=== PATIENT | male | born 1980 | race Caucasian/White ===

== ENCOUNTER 2016-10-28 14:45 | Inpatient (IN) | payer OTHER ==
[2016-10-28] VITALS (24 sets, daily range): BP systolic 79–134; BP diastolic 51–63; PULSE 114–130; RESP 8–31; TEMP 99.3
[~2016-10-28] VITALS: Ht 180.3 cm; Wt 181.0 kg
[~2016-10-28 14:45] MED LIST: BACTDS PO; CEPH-443 PO; HYDR-906 PO; NAPR-260 PO
[2016-10-28] MEDS ORDERED: CEPHALEXIN 500 MG CAP PO ONE (15:30)
[2016-10-28] MEDS ORDERED: LIDOCAINE 2% (MDV) 20 ML INJ INJ ONE (15:30)
[2016-10-28] MEDS ORDERED: IBUPROFEN 800 MG TAB PO ONE (15:30)
[2016-10-28] MEDS ORDERED: ACETAMINOPHEN 325 MG TAB PO ONE (15:30)
[2016-10-28] MEDS ORDERED: TRIMETHOPRIM/SULFAMETHOX (DS) TAB PO ONE (15:30)
[2016-10-28] MEDS ORDERED: SOD CHLORIDE 0.9% 1,000 ML IV STA (15:49)
[2016-10-28] MEDS ORDERED: morphine 4 MG/ML VIAL IV STA (15:49)
[2016-10-28] MEDS ORDERED: SOD CHLORIDE 0.9% 1,000 ML IV ONE ×3 (16:30→23:30)
[2016-10-28 16:33] LABS: ABNORMAL IP MESSAGE 1; BASOPHIL # 0.1 10^3/ul (0.0-0.1); BASOPHILS % 0.2 % (0.0-2.0); HEMOGLOBIN 15.1 g/dl (14.0-18.0); LYMPHOCYTES % 4.8 % (15.0-51.0); MEAN CORPUSCULAR HEMOGLOBIN 28.5 pg (29.0-33.0); MEAN CORPUSCULAR HGB CONC 34.3 g/dl (32.0-37.0); MEAN PLATELET VOLUME 11.5 fl (7.4-10.4); MONOCYTE # 2.2 10^3/ul (0.3-0.9); MONOCYTES % 10.4 % (0.0-11.0); NEUTROPHIL # 17.2 10^3/ul (1.6-7.5); NEUTROPHILS % 83.6 % (39.0-77.0); PLATELET COUNT 216 10^3/UL (140-415); POSITIVE DIFF @See below; RED CELL DISTRIBUTION WIDTH 13.2 % (11.5-14.5); WHITE BLOOD COUNT 20.6 10^3/ul (4.8-10.8)
[2016-10-28 16:52] LABS: ALBUMIN 3.5 g/dl (3.3-4.9); ALBUMIN/GLOBULIN RATIO 0.87; BILIRUBIN,INDIRECT 1.2 mg/dl (0-1.1); BILIRUBIN,TOTAL 1.2 mg/dl (0.2-1.3); CALCIUM 8.7 mg/dl (8.4-10.2); CREATININE 0.88 mg/dl (0.61-1.24); POTASSIUM 3.9 mmol/L (3.5-5.1); TOTAL PROTEIN 7.5 g/dl (6.1-8.1)
[2016-10-28] MEDS ORDERED: SOD CHLORIDE 0.9% 100 ML ONE (17:11)
[2016-10-28] MEDS ORDERED: IOHEXOL 300MG/ML 150 ML BTL ONE (17:11)
--- NOTE | 2016-10-28 18:28 | RADRPT ---
PROCEDURE: CT abdomen and pelvis with contrast. CLINICAL INDICATION: Abdominal pain. Right thigh pain. Status post drainage. TECHNIQUE: CT of the abdomen/pelvis was performed utilizing axial images with reconstructions in s agittal and coronal planes following the intravenous administration of 125 cc of Omnipaque-300 contr ast. The administered radiation dose is CTDI 23.81 mGy, DLP 1603.91 mGy-cm. COMPARISON: There are no similar studies submitted for comparison. Ultrasound of the pelvis from the same day. FINDINGS: Lung bases: The lung bases are clear.The heart is normal size without pericardial effusion. CT ABDOMEN: Gastrointestinal tract: There is no bowel obstruction.The appendix is normal size without inflammato ry changes. There are mild to moderate colonic diverticula without acute diverticulitis. No abnorma l colonic wall thickening is identified.There is no pneumoperitoneum. Liver: The liver is normal in size without focal lesion.There is no intrahepatic ductal dilatation. Gallbladder: There is a small gallstone. Pancreas: The pancreas is grossly unremarkable. Spleen: The spleen is normal in size without focal lesion. Kidneys: The kidneys are normal in size and contour.No renal calculi are identified.There is no evid ence of hydronephrosis. Adrenal glands: The bilateral adrenal glands are unremarkable. Retroperitoneum: There is no retroperitoneal adenopathy.The aorta is normal in caliber. There is a s mall fat containing inguinal hernia. CT PELVIS: Pelvic organs: The prostate is normal in size. Bladder: The bladder is unremarkable. There is no pelvic free fluid.No pelvic adenopathy is identified. There is subcutaneous emphysema within the right proximal medial thigh (image 229 series 3) there is mild surrounding subcutaneous stranding. There are mildly large right inguinal lymph nodes which ar e likely reactive. Osseous structures: No destructive lytic or blastic osseous lesion is identified. There is congenita l spinal canal stenosis. IMPRESSION: 1. Subcutaneous emphysema within the right proximal medial thigh with surrounding inflammatory barnett es. There are also inflammatory changes within the right epididymis. There are mildly large right inguinal lymph nodes which are likely reactive. 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 2. Mild to moderate colonic diverticulosis without acute diverticulitis. 3. Cholelithiasis. 4. Congenital spinal canal stenosis. Further findings as detailed above. These findings were discussed with physician's employee relations assistant Jacki Freeman at 06:20 p.m. on October 28, 2016. RPTAT: PP .Everton Gross MD, Date Time Electronically viewed and signed by .Everton Gross MD, MD on 10/28/2016 18:28 .F/
[2016-10-28 19:21] LABS: INR 1.49; PROTIME 18.1 Sec (12.2-14.2); PT RATIO 1.4
[2016-10-28 19:22] LABS: PARTIAL THROMBOPLASTIN TIME 42.5 Sec (25.0-35.0)
[2016-10-28] MEDS ORDERED: VANCOMYCIN 2 GM in SOD CHLORIDE 0.9% 500 ML IVPB ONE (19:30)
[2016-10-28] MEDS ORDERED: CEFEPIME 1GM/50 ML (PMX) 50 ML IVPB ONE (19:30)
[2016-10-28] MEDS ORDERED: metroNIDAZOLE 500 MG/NS (PMX) 100 ML IVPB ONE (19:30)
--- NOTE | 2016-10-28 19:40 | ERA ---
ER Documentation Chief Complaint Date/Time DATE: 10/28/16 TIME: 19:32 Chief Complaint right thigh and perineal pain x 4 days (JACKI PALMER PA-C) HPI 36-year-old male patient with no significant past medical history presents to the ED complaining of right inner thigh and perineal pain that started 4 days ago. Reports that he also felt like he had tactile fevers as well as chills. States that 4 days ago, he noticed that a little opening of his skin occurred in his inner thigh and he started to notice some purulent discharge. States that he started to notice some swelling. States that he is sexually active. Reports that he has 1 sexual partner. Denies any penile discharge. Denies any dysuria, urgency, frequency, abdominal pain, nausea, vomiting, diarrhea. (JACKI PALMER PA-C) This patient was seen with the PA. Please see their note for further detail. Very briefly, this is a 36-year-old male with a history of obesity, reported borderline diabetes and previous perineal abscesses who is presenting with fever , tachycardia with worsening swelling induration fluctuance and purulence in the perineal region over the last 4-7 days. (LUIGI DALTON MD) ROS All systems reviewed and are negative except as per history of present illness. (JACKI PALMER PA-C) 14 point review of systems was completed and negative except for what is in my HPI in the HPI of the PA. (LUIGI DALTON MD) Medications Home Meds Discontinued Scripts Naproxen* (Naprosyn*) 500 Mg Tablet, 500 MG PO BID Y for PAIN AND/OR INFLAMMATION, #30 TAB Prov:MOUSTAPHA GRAHAM PA-C 02/16/16 Hydrocodone/Acetaminophen ([place] 5-325 Tablet) 1 Each Tablet, 1 TAB PO Q6H Y for PAIN, #7 TAB Prov:MOUSTAPHA GRAHAM PA-C 02/16/16 Cephalexin* (Keflex*) 500 Mg Capsule, 500 MG PO QID for 10 Days, CAP Prov:MOUSTAPHA GRAHAM PA-C 02/16/16 Sulfamethoxazole-Trimethoprim* (Bactrim* DS) 800-160 Mg Tab, 1 TAB PO BID for 10 Days, TAB Prov:MOUSTAPHA GRAHAM PA-C 02/16/16 Allergies Allergies: Coded Allergies: No Known Drug Allergies (Verified Allergy, Unknown, 10/28/16) PMhx/Soc History of Surgery: No Anesthesia Reaction: No Hx Neurological Disorder: No Hx Respiratory Disorders: No Hx Cardiac Disorders: No Hx Psychiatric Problems: No Hx Miscellaneous Medical Probl: No Hx Alcohol Use: Yes Hx Substance Use: Yes Hx Tobacco Use: Yes Smoking Status: Current every day smoker (JACKI PALMER PA-C) Physical Exam Vitals Vital Signs Date Time Temp Pulse Resp B/P Pulse Ox O2 Delivery O2 Flow Rate FiO2 10/28/16 18:48 99.3 120 18 118/64 97 Room Air 10/28/16 14:47 101.4 153 20 127/75 97 (LUIGI DALTON MD) Physical Exam Const: [id number]-[id number]-wbhcsnube, well-nourished. In no acute distress. Head: Atraumatic, normocephalic Eyes: Normal Conjunctiva without injection. No purulent discharge. ENT: Normal external ear, nose. Moist oropharynx without tonsillar exudates. Non -erythematous pharynx. Uvula midline. No drooling. No trismus. Neck: No cervical midline tenderness. Full range of motion. No meningismus. No cervical lymphadenopathy. No JVD. Resp: Clear to auscultation bilaterally. No wheezing, rhonchi, rales, or crackles. No accessory muscle use. No retractions. Cardio: Regular rate and rhythm. No murmurs, rubs or gallops. Abd: Soft, nontender, non distended. Normal bowel sounds. No palpable masses. No rebound tenderness. No guarding. Negative McBurney's point. Negative psoas sign. Negative obturator sign. : Uncircumcised penis. No penile discharge. Significant edema and crepitus noted in the right perineum region. Slight tenderness palpation of the right scrotum. No phimosis. No paraphimosis. Skin: No petechiae, purpura. Fluctuance noted in the right inner thigh where there is a 2 cm spontaneous opening and drainage noted. 1 cm circular lesion noted on the right scrotum with spontaneous purulent drainage noted. Back: No midline tenderness. No CVA tenderness. Ext: No cyanosis, or edema. Neur: Awake and alert. Normal gait. Normal coordination. Psych: Normal Mood and Affect (JACKI PALMER PA-C) Physical Exam The patient appeared well nourished and normally developed. Vital signs as documented. Patient is febrile and tachycardic. head exam is unremarkable. No scleral icterus or corneal arcus noted. Neck is without jugular venous distension, thyromegaly, or carotid bruits. Carotid upstrokes are brisk bilaterally. Lungs are clear to auscultation and percussion. Cardiac exam reveals the PMI to be normally sized and situated. Rhythm is regular. First and second heart sounds normal. No murmurs, rubs or gallops. Abdominal exam reveals normal bowel sounds, no masses, no organomegaly and no aortic enlargement. Extremities are nonedematous and both femoral and pedal pulses are normal. Multiple areas of fluctuance in the perineal region with open purulent wounds. (LUIGI DALTON MD) Result Diagram: 10/29/16 1253 10/29/16 1253 Results 24 hrs Laboratory Tests Test 10/28/16 16:00 10/28/16 18:35 White Blood Count 20.610^3/ul Red Blood Count 5.3010^6/ul Hemoglobin 15.1g/dl Hematocrit 44.0% Mean Corpuscular Volume 83.0fl Mean Corpuscular Hemoglobin 28.5pg Mean Corpuscular Hemoglobin Concent 34.3g/dl Red Cell Distribution Width 13.2% Platelet Count 47605^3/UL Mean Platelet Volume 11.5fl Neutrophils % 83.6% Lymphocytes % 4.8% Monocytes % 10.4% Eosinophils % 0.0% Basophils % 0.2% Nucleated Red Blood Cells % 0.0/100WBC Neutrophils # 17.210^3/ul Lymphocytes # 1.010^3/ul Monocytes # 2.210^3/ul Eosinophils # 0.010^3/ul Basophils # 0.110^3/ul Nucleated Red Blood Cells # 0.010^3/ul Sodium Level 136mmol/L Potassium Level 3.9mmol/L Chloride Level 93mmol/L Carbon Dioxide Level 24mmol/L Anion Gap 23 Blood Urea Nitrogen 10mg/dl Creatinine 0.88mg/dl Glucose Level 300mg/dl Calcium Level 8.7mg/dl Total Bilirubin 1.2mg/dl Direct Bilirubin 0.00mg/dl Indirect Bilirubin 1.2mg/dl Aspartate Amino Transf (AST/SGOT) 20IU/L Alanine Aminotransferase (ALT/SGPT) 33IU/L Alkaline Phosphatase 132IU/L Total Protein 7.5g/dl Albumin 3.5g/dl Globulin 4.00g/dl Albumin/Globulin Ratio 0.87 Prothrombin Time 18.1Sec Prothrombin Time Ratio 1.4 INR International Normalized Ratio 1.49 Activated Partial Thromboplast Time 42.5Sec Lactic Acid Level 1.9mmol/L Current Medications Medications (Trade) Dose Ordered Sig/Maureen Route PRN Reason Start Time Stop Time Status Last Admin Dose Admin Ibuprofen (Motrin) 800 mg ONCE ONCE PO 10/28/16 15:30 10/28/16 15:31 DC 10/28/16 15:14 Acetaminophen (Tylenol Tab) 650 mg ONCE ONCE PO 10/28/16 15:30 10/28/16 15:31 DC 10/28/16 15:14 Trimethoprim/ Sulfamethoxazole (Bactrim (Ds)) 1 tab ONCE ONCE PO 10/28/16 15:30 10/28/16 15:31 DC 10/28/16 15:14 Cephalexin (Keflex) 500 mg ONCE ONCE PO 10/28/16 15:30 10/28/16 15:31 DC 10/28/16 15:15 Lidocaine 20 ml 20 ml ONCE ONCE INJ 10/28/16 15:30 10/28/16 15:31 DC 10/28/16 15:14 Sodium Chloride (NS) 1,000 ml @ 1,000 mls/hr Q1H STAT IV 10/28/16 15:49 10/28/16 16:48 DC 10/28/16 16:11 Morphine Sulfate 4 mg 4 mg ONCE STAT IV 10/28/16 15:49 10/28/16 15:51 DC 10/28/16 16:22 Sodium Chloride (NS) 1,000 ml @ 1,000 mls/hr Q1H ONCE IV 10/28/16 16:30 10/28/16 17:29 DC 10/28/16 16:30 IV Flush 10 ml 10 ml STK-MED ONCE .ROUTE 10/28/16 17:11 10/28/16 17:12 DC 10/28/16 17:47 Sodium Chloride (NS) 100 ml @ ud STK-MED ONCE .ROUTE 10/28/16 17:11 10/28/16 17:12 DC 10/28/16 17:49 Iohexol 150 ml 150 ml STK-MED ONCE .ROUTE 10/28/16 17:11 10/28/16 17:12 DC 10/28/16 17:48 Cefepime HCl 50 ml @ 100 mls/hr ONCE ONCE IVPB 10/28/16 19:30 10/28/16 19:59 DC 10/28/16 20:02 Metronidazole 100 ml @ 100 mls/hr ONCE ONCE IVPB 10/28/16 19:30 10/28/16 20:29 DC Sodium Chloride 1,000 ml @ 1,000 mls/hr Q1H ONCE IV 10/28/16 19:30 10/28/16 20:29 DC 10/28/16 20:02 Vancomycin HCl/ Sodium Chloride (Vancocin/NS) 500 ml @ 125 mls/hr ONCE ONCE IVPB 10/28/16 19:30 10/28/16 23:29 (LUIGI DALTON MD) Procedures/MDM This is a 36-year-old male patient with no significant past medical history presents the ED complaining of right inner thigh and perineal pain that started 4 days ago. At this time patient's right inner thigh has fluctuance, therefore an attempt to incise and drain this area was performed with patient's consent. Patient gave consent to perform incision and drainage. 11 blade scalpel used to make a small incision. Abscess Incision and Drainage with irrigation by me: Location: Right inner thigh below crease of right groin Anesthesia: [5 cc Local 2% Lidocaine] Technique: [Irrigated. Disrupted loculations w/ instrumentation ] Packing: [None] Complications: [Neurovascularly intact post procedure] There is initial consideration to I&D a left thigh abscess. Patient was also given Ibuprofen, Tylenol, Bactrim and Keflex for initiation of treatment. However, it was noted that the infection appeared to track along the perineum, and the I&D was aborted. Patient is febrile at 101.4 and tachycardic at 153. Patient was further worked up with CBC, CMP, lipase, UA, CT abdomen and pelvis with contrast, scrotal ultrasound. Patient's pain and symptoms have improved after treatment with 4 mg IV morphine , 30 mg/kg normal saline. CBC: Leukocytosis of 20.6.. No e/o anemia. CMP: No e/o severe acidosis, alkalosis, renal failure, liver disease. Glucose 300 - secondary to probable undiagnosed diabetes. No e/o DKA. Lipase within normal limits. Lactic acid 1.9 Urine: No leukocyte esterase, no nitrites, no hematuria. PROCEDURE: CT abdomen and pelvis with contrast. CLINICAL INDICATION: Abdominal pain. Right thigh pain. Status post drainage. TECHNIQUE: CT of the abdomen/pelvis was performed utilizing axial images with reconstructions in sagittal and coronal planes following the intravenous administration of 125 cc of Omnipaque-300 contrast. The administered radiation dose is CTDI 23.81 mGy, DLP 1603.91 mGy-cm. COMPARISON: There are no similar studies submitted for comparison. Ultrasound of the pelvis from the same day. FINDINGS: Lung bases: The lung bases are clear.The heart is normal size without pericardial effusion. CT ABDOMEN: Gastrointestinal tract: There is no bowel obstruction.The appendix is normal size without inflammatory changes. There are mild to moderate colonic diverticula without acute diverticulitis. No abnormal colonic wall thickening is identified.There is no pneumoperitoneum. Liver: The liver is normal in size without focal lesion.There is no intrahepatic ductal dilatation. Gallbladder: There is a small gallstone. Pancreas: The pancreas is grossly unremarkable. Spleen: The spleen is normal in size without focal lesion. Kidneys: The kidneys are normal in size and contour.No renal calculi are identified.There is no evidence of hydronephrosis. Adrenal glands: The bilateral adrenal glands are unremarkable. Retroperitoneum: There is no retroperitoneal adenopathy.The aorta is normal in caliber. There is a small fat containing inguinal hernia. CT PELVIS: Pelvic organs: The prostate is normal in size. Bladder: The bladder is unremarkable. There is no pelvic free fluid.No pelvic adenopathy is identified. There is subcutaneous emphysema within the right proximal medial thigh (image 229 series 3) there is mild surrounding subcutaneous stranding. There are mildly large right inguinal lymph nodes which are likely reactive. Osseous structures: No destructive lytic or blastic osseous lesion is identified. There is congenital spinal canal stenosis. IMPRESSION: 1. Subcutaneous emphysema within the right proximal medial thigh with surrounding inflammatory changes. There are also inflammatory changes within the right epididymis. There are mildly large right inguinal lymph nodes which are likely reactive. 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 2. Mild to moderate colonic diverticulosis without acute diverticulitis. 3. Cholelithiasis. 4. Congenital spinal canal stenosis. Further findings as detailed above. These findings were discussed with physician's veterinarian assistant Jacki Palmer at 06:20 p.m. on October 28, 2016. 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 Patient's glucose is 300. Patient likely has undiagnosed diabetes. Case discussed with my supervising physician, Dr. Dalton who agreed to consult the general surgeon plant taxonomist for emergent consultation. The patient was notified and agreed to admission. Patient understood his findings. Patient will be treated here in the ED with Cefepime, Vancomycin and Flagyl. (JACKI PALMER PA-C) The patient presented febrile and tachycardic. Blood work is obtained and reviewed. He has a leukocytosis to 20. 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 There is initial consideration to I&D a left thigh abscess. However, it was noted that the infection appeared to track along the perineum, and the I&D was aborted. The patient was given 30 mL/kg of normal saline. He was given broad-spectrum antibiotics in the emergency department. This patient was seen by the PA under my direct supervision. General surgery was consulted to evaluate the patient. They took him to the OR for operative intervention. The patient will be admitted to the hospital for further evaluation and management. (LUIGI DALTON MD) Departure Diagnosis: Primary Impression: Dian gangrene Condition: Fair JACKI PALMER PA-C Oct 28, 2016 19:40 LUIGI DALTON MD Oct 28, 2016 21:57 SBP LESS THAN 90 10/28/16 21:30 10/29/16 02:00 Meperidine HCl (Demerol) 25 mg PACU ORDER PRN IV POST-OP RIGORS 10/28/16 21:30 10/29/16 02:00 Diphenhydramine HCl (Benadryl) 25 mg PACU ORDER PRN IV PRURITUS 10/28/16 21:30 10/29/16 02:00 Ondansetron HCl (Zofran Inj) 4 mg BRIDGE ORDER PRN IV NAUSEA AND/OR VOMITING 10/28/16 22:00 10/29/16 21:59 Acetaminophen (Tylenol Tab) 650 mg ER BRIDGE PRN PO MILD PAIN/FEVER 10/28/16 22:00 10/29/16 21:59 (LUIGI DALTON MD) Procedures/MDM This is a 36-year-old male patient with no significant past medical history presents the ED complaining of right inner thigh and perineal pain that started 4 days ago. At this time patient's right inner thigh has fluctuance, therefore an attempt to incise and drain this area was performed with patient's consent. Patient gave consent to perform incision and drainage. 11 blade scalpel used to make a small incision. Abscess Incision and Drainage with irrigation by me: Location: Right inner thigh below crease of right groin Anesthesia: [5 cc Local 2% Lidocaine] Technique: [Irrigated. Disrupted loculations w/ instrumentation ] Packing: [None] Complications: [Neurovascularly intact post procedure] Copious purulent discharge drained from the abscess. Patient is febrile at 101.4 and tachycardic at 153. Patient was further worked up with CBC, CMP, lipase, UA, Patient's pain and symptoms have improved after treatment with CBC: Leukocytosis of 20.6. No e/o anemia. CMP: No e/o severe acidosis, alkalosis, renal failure, diabetic ketoacidosis, liver disease Lipase within normal limits. Urine: No leukocyte esterase, no nitrites, no hematuria. PROCEDURE: CT abdomen and pelvis with contrast. CLINICAL INDICATION: Abdominal pain. Right thigh pain. Status post drainage. TECHNIQUE: CT of the abdomen/pelvis was performed utilizing axial images with reconstructions in sagittal and coronal planes following the intravenous administration of 125 cc of Omnipaque-300 contrast. The administered radiation dose is CTDI 23.81 mGy, DLP 1603.91 mGy-cm. COMPARISON: There are no similar studies submitted for comparison. Ultrasound of the pelvis from the same day. FINDINGS: Lung bases: The lung bases are clear.The heart is normal size without pericardial effusion. CT ABDOMEN: Gastrointestinal tract: There is no bowel obstruction.The appendix is normal size without inflammatory changes. There are mild to moderate colonic diverticula without acute diverticulitis. No abnormal colonic wall thickening is identified.There is no pneumoperitoneum. Liver: The liver is normal in size without focal lesion.There is no intrahepatic ductal dilatation. Gallbladder: There is a small gallstone. Pancreas: The pancreas is grossly unremarkable. Spleen: The spleen is normal in size without focal lesion. Kidneys: The kidneys are normal in size and contour.No renal calculi are identified.There is no evidence of hydronephrosis. Adrenal glands: The bilateral adrenal glands are unremarkable. Retroperitoneum: There is no retroperitoneal adenopathy.The aorta is normal in caliber. There is a small fat containing inguinal hernia. CT PELVIS: Pelvic organs: The prostate is normal in size. Bladder: The bladder is unremarkable. There is no pelvic free fluid.No pelvic adenopathy is identified. There is subcutaneous emphysema within the right proximal medial thigh (image 229 series 3) there is mild surrounding subcutaneous stranding. There are mildly large right inguinal lymph nodes which are likely reactive. Osseous structures: No destructive lytic or blastic osseous lesion is identified. There is congenital spinal canal stenosis. IMPRESSION: 1. Subcutaneous emphysema within the right proximal medial thigh with surrounding inflammatory changes. There are also inflammatory changes within the right epididymis. There are mildly large right inguinal lymph nodes which are likely reactive. 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 2. Mild to moderate colonic diverticulosis without acute diverticulitis. 3. Cholelithiasis. 4. Congenital spinal canal stenosis. Further findings as detailed above. These findings were discussed with physician's veterinarian assistant Jacki Palmer at 06:20 p.m. on October 28, 2016. Patient's clinical examination and CT findings are likely consistent with Ingrid 's gangrene. Patient's glucose is 300. Patient likely has undiagnosed diabetes. Case discussed with my supervising physician, Dr. Dalton who agreed to consult the general surgeon plant taxonomist for emergent consultation. The patient was notified and agreed to admission. Patient understood his findings. Patient will be treated here in the ED with Cefepime, Vancomycin and Flagyl. (JACKI PALMER PA-C) The patient presented febrile and tachycardic. Blood work is obtained and reviewed. He has a leukocytosis to 20. 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 There is initial consideration to I&D a left thigh abscess. However, it was noted that the infection appeared to track along the perineum, and the I&D was aborted. The patient was given 30 mL/kg of normal saline. He was given broad-spectrum antibiotics in the emergency department. This patient was seen by the PA under my direct supervision. General surgery was consulted to evaluate the patient. They took him to the OR for operative intervention. The patient will be admitted to the hospital for further evaluation and management. (LUIGI DALTON MD) Departure Diagnosis: Primary Impression: Dian gangrene Condition: Fair JACKI PALMER PA-C Oct 28, 2016 19:40 LUIGI DALTON MD Oct 28, 2016 21:57
--- NOTE | 2016-10-28 20:13 | CONS ---
Date/Time of Note Date/Time of Note DATE: 10/28/16 TIME: 20:05 Assessment/Plan Assessment/Plan Chief Complaint/Hosp Course Morbidly obese 36-year-old male with sepsis secondary to necrotizing soft tissue infection of the right thigh, gluteus and perineum * Aggressive IV fluid hydration, tight blood sugar control, broad-spectrum intravenous antibiotics * Patient will require emergent incision and debridement. This was discussed with him including all risks and benefits of the procedure. I discussed the possible need for multiple debridements, prolonged wound healing, etc. Patient understands and is agreeable to treatment plan as outlined. Informed consent will be obtained and he will be scheduled for emergent debridement Problems: Consultation Date/Type/Reason Admit Date/Time Date of Consultation: Oct 28, 2016 Type of Consultation: GENERAL SURGERY Reason for Consultation Right thigh pain Hx of Present Illness Patient is a morbidly obese 36-year-old male who presented to the emergency room complaining of right thigh pain. He states this is been present for the past 4 days. It was associated with tactile fever and chills. The patient noticed a small pustule in the area which had popped and was draining. On arrival to the emergency room he was found to be tachycardic and febrile with a stable blood pressure. Leukocytosis of 20,000 was present as well as blood sugar over 300. Patient was felt to have an abscess of the inner thigh and an attempted incision and drainage was made by the ER physician's content assistant. Subsequently CT scan was performed which showed extensive subcutaneous emphysema within the soft tissues of the right thigh. Surgical consultation was called after this finding. A 14 point review of systems was conducted and was negative except for that which is mentioned in HPI Past Medical History Medical History: no pertinent history Past Surgical History Past Surgical Hx: no surgical history Family History Significant Family History: no pertinent family hx Social History Smoking Status: Current every day smoker Exam/Review of Systems Vital Signs Vitals Vital Signs Date Time Temp Pulse Resp B/P Pulse Ox O2 Delivery O2 Flow Rate FiO2 10/28/16 18:48 99.3 120 18 118/64 97 Room Air Exam GENERAL: Morbidly obese, awake, alert, oriented x 3. No acute distress. SKIN: No jaundice. HEENT: PERRLA, EOMI, No Scleral Icterus NECK: Supple without JVD CARDIOVASCULAR: S1S2, regular rate and rhythm. No murmurs appreciated. RESPIRATORY: Clear to auscultation bilaterally. ABDOMEN: Obese, soft, bowel sounds present, nondistended, nontender to palpation. Reducible umbilical hernia palpated. EXTREMITIES: There is induration with crepitus of the right medial thigh there is an open incision site from the incision and drainage performed while in the emergency room. There is no drainage from the site. There is chronic skin thickening and hyperpigmentation. Induration, swelling, and erythema extends to the gluteal and perineal areas. Areas are tender to palpation. NEUROLOGIC: Cranial nerves II-XII are intact. Sensation is intact grossly. Results Result Diagram: 10/28/16 1600 10/28/16 1600 Results 24 hrs Laboratory Tests Test 10/28/16 16:00 10/28/16 18:35 White Blood Count 20.6 H Red Blood Count 5.30 Hemoglobin 15.1 Hematocrit 44.0 Mean Corpuscular Volume 83.0 Mean Corpuscular Hemoglobin 28.5 L Mean Corpuscular Hemoglobin Concent 34.3 Red Cell Distribution Width 13.2 Platelet Count 216 Mean Platelet Volume 11.5 H Neutrophils % 83.6 H Lymphocytes % 4.8 L Monocytes % 10.4 Eosinophils % 0.0 Basophils % 0.2 Nucleated Red Blood Cells % 0.0 Neutrophils # 17.2 H Lymphocytes # 1.0 Monocytes # 2.2 H Eosinophils # 0.0 Basophils # 0.1 Nucleated Red Blood Cells # 0.0 Sodium Level 136 Potassium Level 3.9 Chloride Level 93 L Carbon Dioxide Level 24 Anion Gap 23 H Blood Urea Nitrogen 10 Creatinine 0.88 Glucose Level 300 H Calcium Level 8.7 Total Bilirubin 1.2 Direct Bilirubin 0.00 Indirect Bilirubin 1.2 H Aspartate Amino Transf (AST/SGOT) 20 Alanine Aminotransferase (ALT/SGPT) 33 Alkaline Phosphatase 132 H Total Protein 7.5 Albumin 3.5 Globulin 4.00 H Albumin/Globulin Ratio 0.87 Prothrombin Time 18.1 H Prothrombin Time Ratio 1.4 INR International Normalized Ratio 1.49 Activated Partial Thromboplast Time 42.5 H Lactic Acid Level 1.9 Medications Medications Current Medications Metronidazole 100 ml @ 100 mls/hr ONCE ONCE IVPB ; Start 10/28/16 at 19:30; Stop 10/28/16 at 20:29 Sodium Chloride 1,000 ml @ 1,000 mls/hr Q1H ONCE IV ; Start 10/28/16 at 19:30; Stop 10/28/16 at 20:29 Vancomycin HCl/ Sodium Chloride (Vancocin/NS) 500 ml @ 125 mls/hr ONCE ONCE IVPB ; Start 10/28/16 at 19:30; Stop 10/28/16 at 23:29 Procedures Procedures PROCEDURE: CT abdomen and pelvis with contrast. CLINICAL INDICATION: Abdominal pain. Right thigh pain. Status post drainage. TECHNIQUE: CT of the abdomen/pelvis was performed utilizing axial images with reconstructions in sagittal and coronal planes following the intravenous administration of 125 cc of Omnipaque-300 contrast. The administered radiation dose is CTDI 23.81 mGy, DLP 1603.91 mGy-cm. COMPARISON: There are no similar studies submitted for comparison. Ultrasound of the pelvis from the same day. FINDINGS: Lung bases: The lung bases are clear.The heart is normal size without pericardial effusion. CT ABDOMEN: Gastrointestinal tract: There is no bowel obstruction.The appendix is normal size without inflammatory changes. There are mild to moderate colonic diverticula without acute diverticulitis. No abnormal colonic wall thickening is identified.There is no pneumoperitoneum. Liver: The liver is normal in size without focal lesion.There is no intrahepatic ductal dilatation. Gallbladder: There is a small gallstone. Pancreas: The pancreas is grossly unremarkable. Spleen: The spleen is normal in size without focal lesion. Kidneys: The kidneys are normal in size and contour.No renal calculi are identified.There is no evidence of hydronephrosis. Adrenal glands: The bilateral adrenal glands are unremarkable. Retroperitoneum: There is no retroperitoneal adenopathy.The aorta is normal in caliber. There is a small fat containing inguinal hernia. CT PELVIS: Pelvic organs: The prostate is normal in size. Bladder: The bladder is unremarkable. There is no pelvic free fluid.No pelvic adenopathy is identified. There is subcutaneous emphysema within the right proximal medial thigh (image 229 series 3) there is mild surrounding subcutaneous stranding. There are mildly large right inguinal lymph nodes which are likely reactive. Osseous structures: No destructive lytic or blastic osseous lesion is identified. There is congenital spinal canal stenosis. IMPRESSION: 1. Subcutaneous emphysema within the right proximal medial thigh with surrounding inflammatory changes. There are also inflammatory changes within the right epididymis. There are mildly large right inguinal lymph nodes which are likely reactive. 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 2. Mild to moderate colonic diverticulosis without acute diverticulitis. 3. Cholelithiasis. 4. Congenital spinal canal stenosis. Further findings as detailed above. These findings were discussed with physician's content assistant Jacki Freeman at 06:20 p.m. on October 28, 2016. RPTAT: PP .Everton Gross MD, MD Date Time Electronically viewed and signed by .Everton Gross MD, on 10/28/2016 18:28 .F/ CC: JACKI FREEMAN PA-C, MICHAEL A. MD Oct 28, 2016 20:13
[2016-10-28] MEDS ORDERED: VANCOMYCIN 1 GM INJ ONE ×2 (20:20→21:51)
[2016-10-28] MEDS ORDERED: SODIUM CL BACTERIOSTATIC 30 ML INJ ONE (20:21)
[2016-10-28] MEDS ORDERED: MIDAZOLAM 1 MG/ML 2 ML INJ ONE (20:43)
[2016-10-28] MEDS ORDERED: DESFLURANE 15 MIN ONE (20:45)
[2016-10-28] MEDS ORDERED: PROPOFOL 200 MG INJ ONE (20:45)
[2016-10-28 20:50] LABS: ADD UMIC YES; UR ASCORBIC ACID NEGATIVE (NEGATIVE); UR BILIRUBIN (Dip) NEGATIVE (NEGATIVE); UR BLOOD (Dip) NEGATIVE (NEGATIVE); UR CLARITY CLEAR (CLEAR); UR COLOR YELLOW (YELLOW); UR GLUCOSE (Dip) 3+ mg/dL (NEGATIVE); UR KETONES (Dip) 1+ mg/dL (NEGATIVE); UR LEUKOCYTE ESTERASE (Dip) NEGATIVE Leu/ul (NEGATIVE); UR NITRITE (Dip) NEGATIVE (NEGATIVE); UR RBC 7 /HPF (0-5); UR SPECIFIC GRAVITY (Dip) 1.043 (1.003-1.030); UR TOTAL PROTEIN (Dip) 1+ mg/dl (NEGATIVE); UR UROBILINOGEN (Dip) 1+ mg/dL (NEGATIVE)
[2016-10-28] MEDS ORDERED: ALBUMIN HUMAN 5% 250 ML IV PRN (21:30)
[2016-10-28] MEDS ORDERED: DIPHENHYDRAMINE 50 MG INJ IV PRN (21:30)
[2016-10-28] MEDS ORDERED: ONDANSETRON 4 MG INJ IV PRN ×3 (21:30→22:30)
[2016-10-28] MEDS ORDERED: EPHEDrine SULFATE 50 MG/5 ML SYG IV PRN (21:30)
[2016-10-28] MEDS ORDERED: HYDROmorphONE (0.2 MG/ML) 10ML SYG IV PRN ×3 (21:30)
[2016-10-28] MEDS ORDERED: METOCLOPRAMIDE 10 MG INJ IV PRN (21:30)
[2016-10-28] MEDS ORDERED: FENTAnyl 50 MCG/ML VIAL IV PRN ×3 (21:30)
[2016-10-28] MEDS ORDERED: MEPERIDINE 25 MG INJ IV PRN (21:30)
[2016-10-28] MEDS ORDERED: LABETALOL HCL 20MG INJ IV PRN (21:30)
[2016-10-28] MEDS ORDERED: morphine (1 MG/ML) 10ML SYRINGE IV PRN ×3 (21:30)
[2016-10-28] MEDS ORDERED: SUCCINYLCHOLINE CHLORIDE 100 MG/5 ML SYG IV ONE (21:32)
[2016-10-28] MEDS ORDERED: ROCURONIUM 50 MG INJ ONE (21:32)
[2016-10-28] MEDS ORDERED: PROPOFOL 40 ML ONE (21:32)
[2016-10-28] MEDS ORDERED: KETOROLAC 30 MG INJ ONE (21:32)
[2016-10-28] MEDS ORDERED: ONDANSETRON 4 MG INJ ONE (21:32)
[2016-10-28] MEDS ORDERED: DEXAMETHASONE 4 MG/ML 1 ML INJ ONE (21:32)
[2016-10-28] MEDS ORDERED: METOCLOPRAMIDE 10 MG INJ ONE (21:32)
[2016-10-28] MEDS ORDERED: POLYMYXIN/BACITRACIN 1L IRRIG ONE (21:55)
[2016-10-28] MEDS ORDERED: ACETAMINOPHEN 325 MG TAB PO PRN ×2 (22:00→22:30)
[2016-10-28] MEDS ORDERED: HYDROCODONE/APAP (10/325) TAB PO PRN (22:30)
[2016-10-28] MEDS ORDERED: VANCOMYCIN 1 GM (PMX) 250 ML IVPB SCH (22:30)
--- NOTE | 2016-10-28 22:31 | OPR ---
Date/Time of Note Date/Time of Note DATE: 10/28/16 TIME: 22:23 Operative Report Procedure Date: Oct 28, 2016 Preoperative Diagnosis Necrotizing soft tissue infection of right thigh, groin, buttocks Postoperative Diagnosis Necrotizing soft tissue infection of right thigh, groin, buttocks Operation Performed 1. Excisional debridement necrotizing soft tissue of right thigh approximately 45 cm 2. Excisional debridement necrotizing soft tissue of right buttocks and groin approximately 72 cm Surgeon: AURELIANO RANDALL MD Anesthesia Type: general Anesthesiologist: MICHAEL LAKE MD Estimated Blood Loss: 10 - 50 ml's Transfusion Required: no Specimens Wound cultures, excision of necrotic tissue Complications: no Pt Condition Post Procedure: stable Disposition: PACU Indications Patient is a morbidly obese 36-year-old male who presented to the emergency room with necrotizing soft tissue infection involving the right medial thigh, gluteal region, right groin. He was scheduled for emergent excisional debridement of these areas. All risks and benefits of the procedure including, but not limited to: Recurrent and prolonged wound infection requiring multiple subsequent operative debridements, prolonged wound healing, ongoing sepsis, etc. were all explained to the patient in full detail. He fully understood and wished to proceed with the procedure. Informed consent was obtained. Operative\Procedure Findings Necrotizing soft tissue and subcutaneous fat with purulent abscess. Procedure Description Patient was brought to the operating room and placed supine on the operating table. Bilateral sequential compression devices were placed on both lower extremities. Patient been given a dose of broad-spectrum intravenous antibiotics while in the emergency room. After the induction of smooth general endotracheal anesthesia the patient was placed in the lithotomy position using Gabino stirrups. A Fagan catheter was inserted under sterile conditions. The scrotum was taped out of the field. The bilateral thighs, groins and perineal area were prepped and draped in standard surgical fashion. There was a prior incision in the right medial thigh from an attempted incision and drainage done while in the emergency room. After performance of the surgical timeout attention was first turned to the area of the right medial thigh. Incision was made using a 10 blade scalpel over the area of crepitus. Carried down through the skin into the subcutaneous tissue. Necrotic tissue was identified and excisional debridement was done approximately 45 cm. Attention was then turned towards the right buttock wound. An incision was made using a 15 blade scalpel over the area of induration. Incision was carried down through the skin and dermis into the subcutaneous tissue. Necrotic tissue was identified as well as a lot of pus that was drained. Pus was all suctioned out and blunt finger dissection was done. The cavity extended from posterior to anterior the level of the groin to the scrotum. Necrotic tissue was excised. Cultures were taken of both wounds. A portion of necrotic tissue was passed off the field for specimen. Excised area was approximately 72 cm. After adequate excision was done to both wounds as noted by viable bleeding tissue copious pulse lavage irrigation was done using antibiotic containing irrigation. Several liters of irrigation were done. Hemostasis was then obtained using Bovie electrocautery and direct pressure. Once adequate hemostasis was obtained antibiotic soaked Kerlix was used to pack both wound cavities. Sterile dressings were then applied. Patient was then awoken from anesthesia and transferred to the recovery room in stable condition. All counts were correct at the end of the case 2. AURELIANO RANDALL MD Oct 28, 2016 22:31
[2016-10-28] MEDS ORDERED: GLUCAGON 1 MG INJ IM PRN (23:30)
[2016-10-28] MEDS ORDERED: GLUCOSE GEL 15 GRAM TUBE BUCCAL PRN (23:30)
[2016-10-28] MEDS ORDERED: GLUCOSE GEL 15 GRAM TUBE PO PRN ×2 (23:30)
[2016-10-28] MEDS ORDERED: DEXTROSE 50% 50 ML SYRINGE IV PRN ×2 (23:30)
[2016-10-29] VITALS (29 sets, daily range): BP systolic 68–123; BP diastolic 34–73; PULSE 90–130; RESP 14–21; Ht 180.3 cm; Wt 181.0 kg
[2016-10-29] MEDS ORDERED: SOD CHLORIDE 0.9% 1,000 ML IV ONE ×2 (01:00→01:30)
[2016-10-29 02:07] LABS: ABNORMAL IP MESSAGE 1; BASOPHIL # 0.1 10^3/ul (0.0-0.1); BASOPHILS % 0.2 % (0.0-2.0); HEMATOCRIT 37.7 % (42.0-52.0); HEMOGLOBIN 12.5 g/dl (14.0-18.0); LYMPHOCYTES # 0.6 10^3/ul (0.8-2.9); LYMPHOCYTES % 2.7 % (15.0-51.0); MEAN CORPUSCULAR HEMOGLOBIN 28.1 pg (29.0-33.0); MEAN CORPUSCULAR HGB CONC 33.2 g/dl (32.0-37.0); MEAN CORPUSCULAR VOLUME 84.7 fl (82.0-101.0); MEAN PLATELET VOLUME 11.5 fl (7.4-10.4); MONOCYTE # 2.5 10^3/ul (0.3-0.9); MONOCYTES % 10.4 % (0.0-11.0); NEUTROPHIL # 19.7 10^3/ul (1.6-7.5); NEUTROPHILS % 82.4 % (39.0-77.0); PLATELET COUNT 187 10^3/UL (140-415); POSITIVE DIFF @See below; RED BLOOD COUNT 4.45 10^6/ul (4.70-6.10); RED CELL DISTRIBUTION WIDTH 13.5 % (11.5-14.5); WHITE BLOOD COUNT 23.9 10^3/ul (4.8-10.8)
[2016-10-29] MEDS: SOD CHLORIDE 0.9% 1,000 ML IV SCH ×7 (02:39→17:29)
[2016-10-29 02:49] LABS: CALCIUM 7.7 mg/dl (8.4-10.2); CREATININE 0.92 mg/dl (0.61-1.24); POTASSIUM 4.3 mmol/L (3.5-5.1)
[2016-10-29] MEDS: PIPER-TAZO 3.375 GM IV (PMX) 100 ML IVPB SCH ×4 (04:44→17:06)
[2016-10-29] MEDS ORDERED: PANTOPRAZOLE 40 MG INJ IV SCH (06:00)
[2016-10-29] MEDS: VANCOMYCIN 1.5 GM in SOD CHLORIDE 0.9% 250 ML IVPB SCH ×2 (08:10→17:06)
[2016-10-29] MEDS: INSULIN ASPART [NOVOLOG] 3 ML PEN SC SCH ×4 (08:13→21:02)
--- NOTE | 2016-10-29 08:13 | HP ---
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 Patient was started on broad- spectrum antibiotics. He was taken to the OR and had an excisional debridement of the right thigh and groin and buttocks. Currently on IV fluids. His urine output does show very dark concentrated urine, patient likely is very dehydrated. Will continue IV fluid resuscitation. IV pain medication for pain control. Will start patient on clear liquid diet. He broad-spectrum antibiotics of IV vancomycin and Zosyn. Trend lactate. Trend white blood cell count. Surgery is following. 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 The current time the cause of this is unknown however this could be related to patient's obesity and/ or likely underlying diabetes. Continue IV antibiotics as per #1 #3 elevated blood glucose levels: Patient denies any history of diabetes mellitus. Will check a hemoglobin A1c. Will patient on insulin sliding scale as blood sugars are ranging in the 200- 300s. #4 abnormal coags: Patient does not have any underlying history of anticoagulation use or any liver disease. At the current time will check right upper quadrant ultrasound to evaluate the liver. Will consider hematology consult. #5 DVT and GI prophylaxis: SCDs, Protonix Further treatment strategy will be implemented as per the clinical Problems: HPI/ROS Admit Date/Time Admit Date/Time Hx of Present Illness Chief complaint: Inner thigh pain This is a 36-year-old male patient with no significant past medical history presents to the ED complaining of right inner thigh and perineal pain that started 4 days ago. Reports that he also felt like he had tactile fevers as well as chills. States that 4 days ago, he noticed that a little opening of his skin occurred in his inner thigh and he started to notice some purulent discharge. States that he started to notice some swelling. States that he is sexually active. Reports that he has 1 sexual partner. Denies any penile discharge. Denies any dysuria, urgency, frequency, abdominal pain, nausea, vomiting, diarrhea. 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 The general surgeon was consulted by the ER. Patient was taken to the OR please see operative report for further details. Patient currently is doing well postop. He is producing dark concentrated urine which he states has been like this for approximately the last day and a half or so. He does state that he is thirsty. Allergies: NKDA Medications: See MAR ROS Const: As per HPI Eyes : No pain discharge or redness or change in visual acuity ENT: No pain, sore throat, congestion, congestion, dysphagia or discharge Respiratory: No shortness of breath, cough, sputum, wheezing, or pleuritic pain Cardiovascular: No chest pain, palpitation, PND, or edema GI : no change in appetite, abdominal pain, nausea, vomiting, diarrhea, constipation, or change in the color his stool Genitourinary: No dysuria, hematuria, flank pain , discharge or CVA tenderness Musculoskeletal: No joint pain, back pain, neck pain, restricted range of motion in neck or joints Skin: As per HPI Neuro: No headache, dizziness, syncope, seizure, focal weakness Endocrine: No polyuria, polydipsia, temperature intolerance Psych: No hallucination, depression, anxiety or suicidal ideation PMH/Family/Social Past Medical History Medical History: no pertinent history Past Surgical History Patient is currently postopExcisional debridement necrotizing soft tissue of right thigh approximately 45 cm, Excisional debridement necrotizing soft tissue of right buttocks and groin approximately 72 cm Family History Significant Family History: diabetes, hypertension Social History Alcohol Use: occasionally Smoking Status: Current some day smoker Drug Use: marijuana Exam/Review of Systems Vital Signs Vitals Vital Signs Date Time Temp Pulse Resp B/P Pulse Ox O2 Delivery O2 Flow Rate FiO2 10/29/16 07:32 97.3 100 21 91/64 97 10/29/16 06:08 Nasal Cannula Intake and Output 10/28/16 10/28/16 10/29/16 15:00 23:00 07:00 Intake Total 1200 ml 3500 ml Output Total 220 ml 1200 ml Balance 980 ml 2300 ml Exam Exam General: Patient is a morbidly obese male lying in bed in no acute distress HEENT: Atraumatic, normocephalic. The pupils are equal, round and reactive. Extraocular motor are intact Neck: Supple with full range of motion. No rigidity or meningismus Chest: Nontender Lungs: Clear to auscultation bilaterally no crackles rales or wheezing Heart: Sinus tachycardia Abdomen: Soft , nontender, nondistended , bowel sounds are present. No guarding no rebound tenderness , No masses or organomegaly. No costovertebral temporal angle mass Extremities: Normal to inspection, no edema no cyanosis Neurologic: Normal mental status, speech normal, cranial nerves II through XII are intact, motor and sensory are intact, no focal weakness Skin: Inner thigh/perineal dressings clean dry and intact. Additional Comments PROCEDURE: CT abdomen and pelvis with contrast. CLINICAL INDICATION: Abdominal pain. Right thigh pain. Status post drainage. TECHNIQUE: CT of the abdomen/pelvis was performed utilizing axial images with reconstructions in sagittal and coronal planes following the intravenous administration of 125 cc of Omnipaque-300 contrast. The administered radiation dose is CTDI 23.81 mGy, DLP 1603.91 mGy-cm. COMPARISON: There are no similar studies submitted for comparison. Ultrasound of the pelvis from the same day. FINDINGS: Lung bases: The lung bases are clear.The heart is normal size without pericardial effusion. CT ABDOMEN: Gastrointestinal tract: There is no bowel obstruction.The appendix is normal size without inflammatory changes. There are mild to moderate colonic diverticula without acute diverticulitis. No abnormal colonic wall thickening is identified.There is no pneumoperitoneum. Liver: The liver is normal in size without focal lesion.There is no intrahepatic ductal dilatation. Gallbladder: There is a small gallstone. Pancreas: The pancreas is grossly unremarkable. Spleen: The spleen is normal in size without focal lesion. Kidneys: The kidneys are normal in size and contour.No renal calculi are identified.There is no evidence of hydronephrosis. Adrenal glands: The bilateral adrenal glands are unremarkable. Retroperitoneum: There is no retroperitoneal adenopathy.The aorta is normal in caliber. There is a small fat containing inguinal hernia. CT PELVIS: Pelvic organs: The prostate is normal in size. Bladder: The bladder is unremarkable. There is no pelvic free fluid.No pelvic adenopathy is identified. There is subcutaneous emphysema within the right proximal medial thigh (image 229 series 3) there is mild surrounding subcutaneous stranding. There are mildly large right inguinal lymph nodes which are likely reactive. Osseous structures: No destructive lytic or blastic osseous lesion is identified. There is congenital spinal canal stenosis. IMPRESSION: 1. Subcutaneous emphysema within the right proximal medial thigh with surrounding inflammatory changes. There are also inflammatory changes within the right epididymis. There are mildly large right inguinal lymph nodes which are likely reactive. 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 2. Mild to moderate colonic diverticulosis without acute diverticulitis. 3. Cholelithiasis. 4. Congenital spinal canal stenosis. Further findings as detailed above. These findings were discussed with physician's nurses medical assistants phlebotomists Jacki Freeman at 06:20 p.m. on October 28, 2016. RPTAT: PP .Everton Gross MD, MD Date Time Electronically viewed and signed by .Everton Gross MD, MD on 10/28/2016 18:28 Labs Result Diagram: 10/29/16 0148 10/29/16 0148 Medications Medications Current Medications Hydromorphone HCl (Dilaudid) 1 mg Q4 PRN IV PAIN LEVEL 6-10; Start 10/28/16 at 22:30 Acetaminophen/ Hydrocodone Bitart ([place] (5/325)) 1 tab Q6H PRN PO PAIN LEVEL 6 -10; Start 10/28/16 at 22:30 Acetaminophen/ Hydrocodone Bitart ([place] (10/325)) 1 tab Q6H PRN PO PAIN; Start 10/28/16 at 22:30 Acetaminophen (Tylenol Tab) 650 mg Q6H PRN PO PAIN AND OR ELEVATED TEMP; Start 10/28/16 at 22:30 Ondansetron HCl (Zofran Inj) 4 mg Q6H PRN IV NAUSEA AND/OR VOMITING; Start 10/28 at 22:30 Pantoprazole 40 mg 40 mg DAILY@06 IV Last administered on 10/29/16t 06:36; Admin Dose 40 MG; Start 10/29/16 at 06:00 Sodium Chloride 1,000 ml @ 200 mls/hr Q5H IV Last administered on 10/29/16 04: 48; Admin Dose 200 MLS/HR; Start 10/28/16 at 22:13 Piperacillin Sod/ Tazobactam Sod (Zosyn 3.375gm/ 100 ml (Pmx)) 100 ml @ 200 mls /hr Q6 IVPB Last administered on 10/29/16 04:44; Admin Dose 200 MLS/HR; Start 10/29/16 at 00:00 Miscellaneous Information 1 ea NOTE XX ; Start 10/28/16 at 23:30 Glucose (Glutose) 15 gm Q15M PRN PO DECREASED GLUCOSE; Start 10/28/16 at 23:30 Glucose (Glutose) 22.5 gm Q15M PRN PO DECREASED GLUCOSE; Start 10/28/16 at 23:30 Dextrose (D50w Syringe) 25 ml Q15M PRN IV DECREASED GLUCOSE; Start 10/28/16 at 23:30 Dextrose (D50w Syringe) 50 ml Q15M PRN IV DECREASED GLUCOSE; Start 10/28/16 at 23:30 Glucagon (Glucagen) 1 mg Q15M PRN IM DECREASED GLUCOSE; Start 10/28/16 at 23:30 Glucose 15 gm 15 gm Q15M PRN BUCCAL DECREASED GLUCOSE; Start 10/28/16 at 23:30 Vancomycin HCl 1.5 gm/Sodium Chloride 250 ml @ 83.333 mls/ hr Q8H IVPB ; Start 10/29/16 at 09:00 Sodium Chloride (NS) 1,000 ml @ 100 mls/hr Q10H IV Last administered on 04:30; Admin Dose 100 MLS/HR; Start 10/29/16 at 03:30 ALICE GALLEGOS Oct 29, 2016 08:11
[2016-10-29 13:22] LABS: ABNORMAL IP MESSAGE 1; BASOPHILS % 0.2 % (0.0-2.0); HEMATOCRIT 37.4 % (42.0-52.0); HEMOGLOBIN 12.4 g/dl (14.0-18.0); LYMPHOCYTES # 0.9 10^3/ul (0.8-2.9); LYMPHOCYTES % 4.2 % (15.0-51.0); MEAN CORPUSCULAR HEMOGLOBIN 28.1 pg (29.0-33.0); MEAN CORPUSCULAR HGB CONC 33.2 g/dl (32.0-37.0); MEAN CORPUSCULAR VOLUME 84.8 fl (82.0-101.0); MEAN PLATELET VOLUME 11.9 fl (7.4-10.4); MONOCYTE # 1.7 10^3/ul (0.3-0.9); MONOCYTES % 8.1 % (0.0-11.0); NEUTROPHIL # 17.8 10^3/ul (1.6-7.5); NEUTROPHILS % 85.6 % (39.0-77.0); PLATELET COUNT 192 10^3/UL (140-415); POSITIVE DIFF @See below; RED BLOOD COUNT 4.41 10^6/ul (4.70-6.10); RED CELL DISTRIBUTION WIDTH 13.7 % (11.5-14.5); WHITE BLOOD COUNT 20.8 10^3/ul (4.8-10.8)
[2016-10-29 13:45] LABS: ALBUMIN/GLOBULIN RATIO 0.85; BILIRUBIN,INDIRECT 0.4 mg/dl (0-1.1); BILIRUBIN,TOTAL 0.4 mg/dl (0.2-1.3); CREATININE 0.78 mg/dl (0.61-1.24); POTASSIUM 4.2 mmol/L (3.5-5.1); TOTAL PROTEIN 6.5 g/dl (6.1-8.1)
--- NOTE | 2016-10-29 16:06 | RADRPT ---
PROCEDURE: US Abdomen (right upper quadrant). CLINICAL INDICATION: Right upper quadrant abdomen pain. TECHNIQUE: Multiple real-time longitudinal and transverse images of the right upper quadrant of th e abdomen were acquired utilizing a curved array transducer. Images were reviewed on a high-resoluti on PACS workstation. COMPARISON: CT scan of the abdomen and pelvis dated 10/28/2016. FINDINGS: The liver is normal in size and diffusely increased in echogenicity. There is no focal hepatic lesion. Gallstones are present in the gallbladder. There is no gallbladder wall thickening or fluid around the gallbladder. The bile ducts are normal with the common bile duct measuring 5.0 mm in diameter. The visualized portions of the pancreas are unremarkable with obscuration of the tail of the pancrea s. No free fluid is present. The right kidney measures 11.9 cm. There is normal echogenicity of the right kidney. There is no perinephric fluid collection. No hydronephrosis, mass, or calculus is seen. IMPRESSION: 1. Gallstones in the gallbladder. No evidence of cholecystitis. 2. The metamorphosis of the liver. 3. Otherwise unremarkable right upper quadrant abdomen ultrasound. RPTAT: QQ .Fazal White MD, MD Date Time Electronically viewed and signed by .Fazal White MD, on 10/29/2016 16:06 .R/
--- NOTE | 2016-10-29 17:51 | PN ---
Date/Time of Note Date/Time of Note DATE: 10/29/16 TIME: 17:45 Assessment/Plan Lines/Catheters IV Catheter Type (from Nrs): Peripheral IV Fagan in Place (from Nrsg): Yes Assessment/Plan Assessment/Plan Morbidly obese 36-year-old male with sepsis secondary to necrotizing soft tissue infection of the right thigh, gluteus and perineum s/p debridement POD#1 * Continue broad spectrum IV antibiotics * Follow up cultures * Will remove dressings and re-evaluate wounds in AM * Given nature of necrotizing soft tissue infection, morbid obesity, poorly controlled diabetes, and possible need for further debridements which may include scrotum and peritoneum and result in large tissue defects I would recommend transfer to a tertiary care center for a higher level of multidisciplinary care and consistent wound care services. Literature supports better outcomes in these situations. Discussed with primary care team. Subjective 24 Hr Interval Summary Feels better. Hemodynamically stable. Afebrile Exam/Review of Systems Vital Signs Vitals Vital Signs Date Time Temp Pulse Resp B/P Pulse Ox O2 Delivery O2 Flow Rate FiO2 10/29/16 16:22 94 10/29/16 15:59 98.1 18 101/62 98 10/29/16 06:08 Nasal Cannula Intake and Output 10/28/16 10/28/16 10/29/16 14:59 22:59 06:59 Intake Total 1200 ml 3500 ml Output Total 220 ml 1200 ml Balance 980 ml 2300 ml Exam Free Text/Dictation GENERAL: Morbidly obese, awake, alert, oriented x 3. No acute distress. CARDIOVASCULAR: S1S2, regular rate and rhythm. No murmurs appreciated. RESPIRATORY: Clear to auscultation bilaterally. ABDOMEN: Obese, soft, bowel sounds present, nondistended, nontender to palpation. Reducible umbilical hernia palpated. DRESSINGS: clean, minimal saturation Results Result Diagram: 10/29/16 1253 10/29/16 1253 AURELIANO RANDALL MD Oct 29, 2016 17:50
--- NOTE | 2016-10-29 18:15 | PN ---
Date/Time of Note Date/Time of Note DATE: 10/29/16 TIME: 18:11 Assessment/Plan VTE Prophylaxis VTE Prophylaxis Intervention: SCD's Lines/Catheters IV Catheter Type (from Nrsg): Peripheral IV Urinary Cath still in place: Yes Reason Cath still needed: skin wounds contaminated by urine, other (indicate) Assessment/Plan Assessment/Plan 36 yo M with morbid obesity, newly diagnosed poorly controlled DM admitted for sepsis 2/2 nectrotizing soft tissue infection of R thigh/gluteus/perineum. sp first debridement 8.7. Case discussed at length with general surgery. Given complexity of pt's infection, transfer to higher level of care advised. I have contacted Mikey from with this info. When I spoke to Mikey later this afternoon he stated he was waiting for documentation from Dr Jeong. I spoke with Dr Jeong who then left a message cont david DM2: a1c 10s weight based basal/bolus insulin ordered await to hear back from re transfer. I will contact in the AM for an update Subjective 24 Hr Interval Summary Free Text/Dictation Case discussed at length with Dr Jeong. Pt's pain currently controlled Exam/Review of Systems Vital Signs Vitals Vital Signs Date Time Temp Pulse Resp B/P Pulse Ox O2 Delivery O2 Flow Rate FiO2 10/29/16 16:22 94 10/29/16 15:59 98.1 18 101/62 98 10/29/16 06:08 Nasal Cannula Intake and Output 10/28/16 10/28/16 10/29/16 15:00 23:00 07:00 Intake Total 1200 ml 3500 ml Output Total 220 ml 1200 ml Balance 980 ml 2300 ml Exam nad, laying in bed no mrg lungs clear abd soft +scrotal swelling +surgical dressings to R thigh a1c 10 leukocytosis still present Results Result Diagram: 10/29/16 1253 10/29/16 1253 Results 24 hrs Laboratory Tests Test 10/28/16 18:35 10/28/16 20:25 10/28/16 22:19 10/29/16 01:07 Prothrombin Time 18.1 H Prothrombin Time Ratio 1.4 INR International Normalized Ratio 1.49 Activated Partial Thromboplast Time 42.5 H Lactic Acid Level 1.9 Urine Color YELLOW Urine Clarity CLEAR Urine pH 5.0 Urine Specific [place] 1.043 H Urine Ketones 1+ H Urine Nitrite NEGATIVE Urine Bilirubin NEGATIVE Urine Urobilinogen 1+ H Urine Leukocyte Esterase NEGATIVE Urine Microscopic RBC 7 H Urine Microscopic WBC 2 Urine Hemoglobin NEGATIVE Urine Glucose 3+ H Urine Total Protein 1+ H Bedside Glucose 193 220 Test 10/29/16 01:48 10/29/16 07:51 10/29/16 08:08 10/29/16 12:10 White Blood Count 23.9 H Red Blood Count 4.45 L Hemoglobin 12.5 L Hematocrit 37.7 L Mean Corpuscular Volume 84.7 Mean Corpuscular Hemoglobin 28.1 L Mean Corpuscular Hemoglobin Concent 33.2 Red Cell Distribution Width 13.5 Platelet Count 187 Mean Platelet Volume 11.5 H Neutrophils % 82.4 H Lymphocytes % 2.7 L Monocytes % 10.4 Eosinophils % 0.0 Basophils % 0.2 Nucleated Red Blood Cells % 0.0 Neutrophils # 19.7 H Lymphocytes # 0.6 L Monocytes # 2.5 H Eosinophils # 0.0 Basophils # 0.1 Nucleated Red Blood Cells # 0.0 Sodium Level 140 Potassium Level 4.3 Chloride Level 103 # Carbon Dioxide Level 21 Anion Gap 20 H Blood Urea Nitrogen 10 Creatinine 0.92 Glucose Level 262 H Lactic Acid Level 2.6 *H 1.7 Calcium Level 7.7 L Bedside Glucose 239 H 302 H Test 10/29/16 12:53 10/29/16 17:18 White Blood Count 20.8 H Red Blood Count 4.41 L Hemoglobin 12.4 L Hematocrit 37.4 L Mean Corpuscular Volume 84.8 Mean Corpuscular Hemoglobin 28.1 L Mean Corpuscular Hemoglobin Concent 33.2 Red Cell Distribution Width 13.7 Platelet Count 192 Mean Platelet Volume 11.9 H Neutrophils % 85.6 H Lymphocytes % 4.2 L Monocytes % 8.1 Eosinophils % 0.0 Basophils % 0.2 Nucleated Red Blood Cells % 0.0 Neutrophils # 17.8 H Lymphocytes # 0.9 Monocytes # 1.7 H Eosinophils # 0.0 Basophils # 0.0 Nucleated Red Blood Cells # 0.0 Sodium Level 140 Potassium Level 4.2 Chloride Level 103 Carbon Dioxide Level 23 Anion Gap 18 H Blood Urea Nitrogen 11 Creatinine 0.78 Glucose Level 297 H Hemoglobin A1c 10.9 H Calcium Level 8.0 L Magnesium Level 2.0 Total Bilirubin 0.4 Direct Bilirubin 0.00 Indirect Bilirubin 0.4 Aspartate Amino Transf (AST/SGOT) 18 Alanine Aminotransferase (ALT/SGPT) 33 Alkaline Phosphatase 100 Total Protein 6.5 # Albumin 3.0 L Globulin 3.50 H Albumin/Globulin Ratio 0.85 Bedside Glucose 268 H Medications Medications Current Medications Hydromorphone HCl (Dilaudid) 1 mg Q4 PRN IV PAIN LEVEL 6-10; Start 10/28/16 at 22:30 Acetaminophen/ Hydrocodone Bitart ([place] (5/325)) 1 tab Q6H PRN PO PAIN LEVEL 6 -10; Start 10/28/16 at 22:30 Acetaminophen/ Hydrocodone Bitart ([place] (10/325)) 1 tab Q6H PRN PO PAIN; Start 10/28/16 at 22:30 Acetaminophen (Tylenol Tab) 650 mg Q6H PRN PO PAIN AND OR ELEVATED TEMP; Start 10/28/16 at 22:30 Ondansetron HCl 4 mg 4 mg Q6H PRN IV NAUSEA AND/OR VOMITING; Start 10/28/16 at 22:30 Piperacillin Sod/ Tazobactam Sod (Zosyn 3.375gm/ 100 ml (Pmx)) 100 ml @ 200 mls /hr Q6 IVPB Last administered on 10/29/16 17:06; Admin Dose 200 MLS/HR; Start 10/29/16 at 00:00 Miscellaneous Information 1 ea NOTE XX ; Start 10/28/16 at 23:30 Glucose (Glutose) 15 gm Q15M PRN PO DECREASED GLUCOSE; Start 10/28/16 at 23:30 Glucose (Glutose) 22.5 gm Q15M PRN PO DECREASED GLUCOSE; Start 10/28/16 at 23:30 Dextrose (D50w Syringe) 25 ml Q15M PRN IV DECREASED GLUCOSE; Start 10/28/16 at 23:30 Dextrose (D50w Syringe) 50 ml Q15M PRN IV DECREASED GLUCOSE; Start 10/28/16 at 23:30 Glucagon (Glucagen) 1 mg Q15M PRN IM DECREASED GLUCOSE; Start 10/28/16 at 23:30 Glucose 15 gm 15 gm Q15M PRN BUCCAL DECREASED GLUCOSE; Start 10/28/16 at 23:30 Vancomycin HCl 1.5 gm/Sodium Chloride 250 ml @ 83.333 mls/ hr Q8H IVPB Last administered on 8/8/17at 17:06; Admin Dose 83.333 MLS/HR; Start 10/29/16 at 09:00 Sodium Chloride (NS) 1,000 ml @ 100 mls/hr Q10H IV Last administered on t 12:07; Admin Dose 100 MLS/HR; Start 10/29/16 at 03:30 Miscellaneous Information (*Rx Drug Level Order Reminder*) VANCO TROUGH @ 0, 000 ON... ONCE ONCE XX ; Start 10/30/16 at 00:00; Stop 10/30/16 at 00:01 Famotidine (Pepcid Iv) 20 mg BID IV ; Start 10/29/16 at 21:00 MARIA DOLORES HENRY MD Oct 29, 2016 18:15
[2016-10-29] MEDS: FAMOTIDINE 20 MG INJ IV SCH (20:52)
[2016-10-30] VITALS (11 sets, daily range): BP systolic 116–124; BP diastolic 56–75; PULSE 2–91; RESP 19–21
[2016-10-30] MEDS: PIPER-TAZO 3.375 GM IV (PMX) 100 ML IVPB SCH ×4 (01:50→18:25)
[2016-10-30] MEDS: VANCOMYCIN 1.5 GM in SOD CHLORIDE 0.9% 250 ML IVPB SCH ×2 (01:50→10:00)
[2016-10-30] MEDS: SOD CHLORIDE 0.9% 1,000 ML IV SCH ×3 (01:58→19:30)
[2016-10-30] MEDS ORDERED: ACCU-CHEK XX SCH (02:00)
[2016-10-30] MEDS: ACCU-CHEK XX SCH (02:00)
[2016-10-30] MEDS: INSULIN GLARGINE [LANtus] 3 ML PEN SC SCH (08:34)
[2016-10-30] MEDS: INSULIN ASPART [NOVOLOG] 3 ML PEN SC SCH ×7 (08:34→20:50)
[2016-10-30] MEDS: FAMOTIDINE 20 MG INJ IV SCH ×2 (09:48→20:49)
[2016-10-30] MEDS: HYDROmorphONE 1 MG/ML SYG IV PRN ×2 (11:35→18:45)
--- NOTE | 2016-10-30 12:50 | PN ---
Date/Time of Note Date/Time of Note DATE: 10/30/16 TIME: 12:46 Assessment/Plan Lines/Catheters IV Catheter Type (from Nrsg): Peripheral IV Fagan in Place (from Nrsg): Yes Assessment/Plan Assessment/Plan Morbidly obese 36-year-old male with sepsis secondary to necrotizing soft tissue infection of the right thigh, gluteus and perineum s/p debridement POD#2 * Continue broad spectrum IV antibiotics * Follow up cultures * Continue local wound care. Wound care nurse eval and recommendations appreciated. * Follow-up CBC * Given nature of necrotizing soft tissue infection, morbid obesity, poorly controlled diabetes, and possible need for further debridements which may include scrotum and peritoneum and result in large tissue defects I would recommend transfer to a tertiary care center for a higher level of multidisciplinary care and consistent wound care services. Literature supports better outcomes in these situations. Discussed with primary care team, wound care nurses, and nurse. Subjective 24 Hr Interval Summary Feels better. Denies pain. Afebrile. Exam/Review of Systems Vital Signs Vitals Vital Signs Date Time Temp Pulse Resp B/P Pulse Ox O2 Delivery O2 Flow Rate FiO2 10/30/16 11:41 97.5 92 19 124/75 97 10/30/16 08:00 Nasal Cannula 2.0 Intake and Output 10/29/16 10/29/16 10/30/16 15:00 23:00 07:00 Intake Total 350 ml 3550 ml 2350 ml Output Total 3000 ml 2800 ml Balance 350 ml 550 ml -450 ml Exam Free Text/Dictation GENERAL: Morbidly obese, awake, alert, oriented x 3. No acute distress. CARDIOVASCULAR: S1S2, regular rate and rhythm. No murmurs appreciated. RESPIRATORY: Clear to auscultation bilaterally. ABDOMEN: Obese, soft, bowel sounds present, nondistended, nontender to palpation. Reducible umbilical hernia palpated. WOUNDS: Mild amount of serosanguineous drainage. Tissue of both wounds looks viable without necrosis. Results Result Diagram: 10/29/16 1253 10/29/16 1253 AURELIANO RANDALL MD Oct 30, 2016 12:50
[2016-10-30] MEDS: SODIUM HYPOCHLORITE 1/40% 1L IRRIG IRR SCH ×2 (14:10→20:49)
--- NOTE | 2016-10-30 14:56 | PN ---
Date/Time of Note Date/Time of Note DATE: 10/30/16 TIME: 14:54 Assessment/Plan VTE Prophylaxis VTE Prophylaxis Intervention: SCD's Lines/Catheters IV Catheter Type (from Nrsg): Peripheral IV Urinary Cath still in place: Yes Reason Cath still needed: skin wounds contaminated by urine Assessment/Plan Assessment/Plan 36 yo M with morbid obesity, newly diagnosed poorly controlled DM admitted for sepsis 2/2 necrotizing soft tissue infection of R thigh/gluteus/perineum. sp first debridement 8.7. Case discussed at length with general surgery 8.8. Given complexity of pt's infection, transfer to higher level of care advised. Mikey/JILL on the case cont david DM2: a1c 10s weight based basal/bolus insulin await to hear back from CM re transfer. I will contact CM in the AM for an update Subjective 24 Hr Interval Summary Free Text/Dictation pt wants to know when he'll be able to go back to work Exam/Review of Systems Vital Signs Vitals Vital Signs Date Time Temp Pulse Resp B/P Pulse Ox O2 Delivery O2 Flow Rate FiO2 10/30/16 13:28 2 10/30/16 11:41 97.5 19 124/75 97 10/30/16 08:00 Nasal Cannula 2.0 Intake and Output 10/29/16 10/29/16 10/30/16 15:00 23:00 07:00 Intake Total 350 ml 3550 ml 2350 ml Output Total 3000 ml 2800 ml Balance 350 ml 550 ml -450 ml Exam nad, laying in bed no mrg lungs clear obese +scrotal swelling. surgical wounds without purulence. Of note, pt with purulent drainage from small boil on scrotum WBCs noted Results Result Diagram: 10/29/16 1253 10/29/16 1253 Results 24 hrs Laboratory Tests Test 10/29/16 17:18 10/29/16 20:50 10/30/16 00:29 10/30/16 02:11 Bedside Glucose 268 H 217 223 H Vancomycin Level Trough 8.2 L Test 10/30/16 08:30 10/30/16 11:38 10/30/16 12:24 Bedside Glucose 193 175 184 Medications Medications Current Medications Hydromorphone HCl (Dilaudid) 1 mg Q4 PRN IV PAIN LEVEL 6-10 Last administered on 10/30/16t 11:35; Admin Dose 1 MG; Start 10/28/16 at 22:30 Acetaminophen/ Hydrocodone Bitart ([place] (5/325)) 1 tab Q6H PRN PO PAIN LEVEL 6 -10; Start 10/28/16 at 22:30 Acetaminophen/ Hydrocodone Bitart ([place] (10/325)) 1 tab Q6H PRN PO PAIN; Start 10/28/16 at 22:30 Acetaminophen (Tylenol Tab) 650 mg Q6H PRN PO PAIN AND OR ELEVATED TEMP; Start 10/28/16 at 22:30 Ondansetron HCl 4 mg 4 mg Q6H PRN IV NAUSEA AND/OR VOMITING; Start 10/28/16 at 22:30 Piperacillin Sod/ Tazobactam Sod (Zosyn 3.375gm/ 100 ml (Pmx)) 100 ml @ 200 mls /hr Q6 IVPB Last administered on 10/30/16 11:34; Admin Dose 200 MLS/HR; Start 10/29/16 at 00:00 Miscellaneous Information 1 ea NOTE XX ; Start 10/28/16 at 23:30 Glucose (Glutose) 15 gm Q15M PRN PO DECREASED GLUCOSE; Start 10/28/16 at 23:30 Glucose (Glutose) 22.5 gm Q15M PRN PO DECREASED GLUCOSE; Start 10/28/16 at 23:30 Dextrose (D50w Syringe) 25 ml Q15M PRN IV DECREASED GLUCOSE; Start 10/28/16 at 23:30 Dextrose (D50w Syringe) 50 ml Q15M PRN IV DECREASED GLUCOSE; Start 10/28/16 at 23:30 Glucagon (Glucagen) 1 mg Q15M PRN IM DECREASED GLUCOSE; Start 10/28/16 at 23:30 Glucose 15 gm 15 gm Q15M PRN BUCCAL DECREASED GLUCOSE; Start 10/28/16 at 23:30 Sodium Chloride (NS) 1,000 ml @ 100 mls/hr Q10H IV Last administered on 01:58; Admin Dose 100 MLS/HR; Start 10/29/16 at 03:30 Famotidine (Pepcid Iv) 20 mg BID IV Last administered on 10/30/16 09:48; Admin Dose 20 MG; Start 10/29/16 at 21:00 Insulin Glargine (Lantus) 27 unit DAILY@08 SC Last administered on 10/30/16 08: 34; Admin Dose 27 UNIT; Start 10/30/16 at 08:00 Diagnostic Test (Pha) 1 ea 1 ea 02 XX ; Start 10/30/16 at 02:00 Vancomycin HCl/ Sodium Chloride (Vancocin/NS) 500 ml @ 125 mls/hr Q8H IVPB ; Start 10/30/16 at 18:00 Sodium Hypochlorite ([place] (Dilute 1/40%)) 1 applic BID IRR Last administered on 10/30/16 14:10; Admin Dose 1 APPLIC; Start 10/30/16 at 13:30 MARIA DOLORES HENRY MD Oct 30, 2016 14:56
[2016-10-30] MEDS: VANCOMYCIN 2 GM in SOD CHLORIDE 0.9% 500 ML IVPB SCH (18:26)
[2016-10-31] VITALS (11 sets, daily range): BP systolic 108–140; BP diastolic 60–76; PULSE 76–103; RESP 18–20
[2016-10-31] MEDS: PIPER-TAZO 3.375 GM IV (PMX) 100 ML IVPB SCH ×5 (00:16→17:08)
[2016-10-31] MEDS: VANCOMYCIN 2 GM in SOD CHLORIDE 0.9% 500 ML IVPB SCH ×3 (01:43→18:16)
[2016-10-31] MEDS: ACCU-CHEK XX SCH (02:00)
[2016-10-31] MEDS: HYDROmorphONE 1 MG/ML SYG IV PRN ×3 (04:17→18:48)
[2016-10-31] MEDS: SOD CHLORIDE 0.9% 1,000 ML IV SCH ×3 (05:46→14:25)
[2016-10-31 07:36] LABS: BASOPHIL # 0.1 10^3/ul (0.0-0.1); BASOPHILS % 0.7 % (0.0-2.0); EOSINOPHILS # 0.4 10^3/ul (0.0-0.5); EOSINOPHILS % 2.8 % (0.0-7.0); HEMATOCRIT 40.7 % (42.0-52.0); HEMOGLOBIN 13.4 g/dl (14.0-18.0); LYMPHOCYTES # 2.8 10^3/ul (0.8-2.9); LYMPHOCYTES % 18.3 % (15.0-51.0); MEAN CORPUSCULAR HEMOGLOBIN 28.3 pg (29.0-33.0); MEAN CORPUSCULAR HGB CONC 32.9 g/dl (32.0-37.0); MEAN CORPUSCULAR VOLUME 85.9 fl (82.0-101.0); MEAN PLATELET VOLUME 11.6 fl (7.4-10.4); MONOCYTE # 1.5 10^3/ul (0.3-0.9); MONOCYTES % 9.8 % (0.0-11.0); NEUTROPHILS % 65.4 % (39.0-77.0); PLATELET COUNT 283 10^3/UL (140-415); RED BLOOD COUNT 4.74 10^6/ul (4.70-6.10); RED CELL DISTRIBUTION WIDTH 13.8 % (11.5-14.5); WHITE BLOOD COUNT 15.3 10^3/ul (4.8-10.8)
[2016-10-31 07:47] LABS: CALCIUM 8.7 mg/dl (8.4-10.2); CREATININE 0.86 mg/dl (0.61-1.24); POTASSIUM 4.5 mmol/L (3.5-5.1)
[2016-10-31] MEDS: FAMOTIDINE 20 MG INJ IV SCH ×2 (08:27→20:51)
[2016-10-31] MEDS: SODIUM HYPOCHLORITE 1/40% 1L IRRIG IRR SCH ×2 (08:27→20:48)
[2016-10-31] MEDS: INSULIN ASPART [NOVOLOG] 3 ML PEN SC SCH ×7 (08:32→20:49)
[2016-10-31] MEDS: INSULIN GLARGINE [LANtus] 3 ML PEN SC SCH (08:33)
--- NOTE | 2016-10-31 15:31 | PN ---
Date/Time of Note Date/Time of Note DATE: 10/31/16 TIME: 15:29 Assessment/Plan VTE Prophylaxis VTE Prophylaxis Intervention: SCD's Lines/Catheters IV Catheter Type (from Nrsg): Peripheral IV Urinary Cath still in place: Yes Reason Cath still needed: skin wounds contaminated by urine Assessment/Plan Assessment/Plan 36 yo M with morbid obesity, newly diagnosed poorly controlled DM admitted for sepsis 2/2 necrotizing soft tissue infection of R thigh/gluteus/perineum. sp first debridement 8.7. Case discussed at length with general surgery 8.8. Given complexity of pt's infection, transfer to higher level of care advised. Mikey/JILL on the case cont david DM2: a1c 10s-->weight based basal/bolus insulin Of note, serum bicarb a little high. pt with likely TOMAS based on body habitus. consider outpatient sleep study await to hear back from CM re transfer., possibly tomorrow Subjective 24 Hr Interval Summary Free Text/Dictation Pt anxious about the next steps Exam/Review of Systems Vital Signs Vitals Vital Signs Date Time Temp Pulse Resp B/P Pulse Ox O2 Delivery O2 Flow Rate FiO2 10/31/16 12:00 90 10/31/16 11:18 98.8 18 120/75 96 10/30/16 19:56 Nasal Cannula 2.0 Intake and Output 10/30/16 10/30/16 10/31/16 15:00 23:00 07:00 Intake Total 2200 ml 2600 ml Output Total 2000 ml 3500 ml Balance 200 ml -900 ml Exam laying in bed, pleasant no mrg lungs clear abd soft ?scrotal swelling a little improved? Results Result Diagram: 10/31/16 0643 10/31/16 0643 Results 24 hrs Laboratory Tests Test 10/30/16 17:18 10/30/16 20:47 10/31/16 06:43 10/31/16 08:24 Bedside Glucose 139 139 149 White Blood Count 15.3 #H Red Blood Count 4.74 Hemoglobin 13.4 L Hematocrit 40.7 L Mean Corpuscular Volume 85.9 Mean Corpuscular Hemoglobin 28.3 L Mean Corpuscular Hemoglobin Concent 32.9 Red Cell Distribution Width 13.8 Platelet Count 283 # Mean Platelet Volume 11.6 H Neutrophils % 65.4 Lymphocytes % 18.3 Monocytes % 9.8 Eosinophils % 2.8 Basophils % 0.7 Nucleated Red Blood Cells % 0.0 Neutrophils # 10.0 H Lymphocytes # 2.8 Monocytes # 1.5 H Eosinophils # 0.4 Basophils # 0.1 Nucleated Red Blood Cells # 0.0 Sodium Level 144 Potassium Level 4.5 Chloride Level 99 Carbon Dioxide Level 33 #H Anion Gap 17 H Blood Urea Nitrogen 9 Creatinine 0.86 Glucose Level 162 # Calcium Level 8.7 Test 10/31/16 12:10 Bedside Glucose 186 Medications Medications Current Medications Hydromorphone HCl (Dilaudid) 1 mg Q4 PRN IV PAIN LEVEL 6-10 Last administered on 10/31/16 13:32; Admin Dose 1 MG; Start 10/28/16 at 22:30 Acetaminophen/ Hydrocodone Bitart ([place] (5/325)) 1 tab Q6H PRN PO PAIN LEVEL 6 -10; Start 10/28/16 at 22:30 Acetaminophen/ Hydrocodone Bitart ([place] (10/325)) 1 tab Q6H PRN PO PAIN; Start 10/28/16 at 22:30 Acetaminophen (Tylenol Tab) 650 mg Q6H PRN PO PAIN AND OR ELEVATED TEMP; Start 10/28/16 at 22:30 Ondansetron HCl 4 mg 4 mg Q6H PRN IV NAUSEA AND/OR VOMITING; Start 10/28/16 at 22:30 Piperacillin Sod/ Tazobactam Sod (Zosyn 3.375gm/ 100 ml (Pmx)) 100 ml @ 200 mls /hr Q6 IVPB Last administered on 10/31/16 13:26; Admin Dose 200 MLS/HR; Start 10/29/16 at 00:00 Miscellaneous Information 1 ea NOTE XX ; Start 10/28/16 at 23:30 Glucose (Glutose) 15 gm Q15M PRN PO DECREASED GLUCOSE; Start 10/28/16 at 23:30 Glucose (Glutose) 22.5 gm Q15M PRN PO DECREASED GLUCOSE; Start 10/28/16 at 23:30 Dextrose (D50w Syringe) 25 ml Q15M PRN IV DECREASED GLUCOSE; Start 10/28/16 at 23:30 Dextrose (D50w Syringe) 50 ml Q15M PRN IV DECREASED GLUCOSE; Start 10/28/16 at 23:30 Glucagon (Glucagen) 1 mg Q15M PRN IM DECREASED GLUCOSE; Start 10/28/16 at 23:30 Glucose 15 gm 15 gm Q15M PRN BUCCAL DECREASED GLUCOSE; Start 10/28/16 at 23:30 Sodium Chloride (NS) 1,000 ml @ 100 mls/hr Q10H IV Last administered on 08:27; Admin Dose 100 MLS/HR; Start 10/29/16 at 03:30 Famotidine (Pepcid Iv) 20 mg BID IV Last administered on 10/31/16 08:27; Admin Dose 20 MG; Start 10/29/16 at 21:00 Insulin Glargine (Lantus) 27 unit DAILY@08 SC Last administered on 10/31/16 08 :33; Admin Dose 27 UNIT; Start 10/30/16 at 08:00 Diagnostic Test (Pha) 1 ea 1 ea 02 XX ; Start 10/30/16 at 02:00 Vancomycin HCl/ Sodium Chloride (Vancocin/NS) 500 ml @ 125 mls/hr Q8H IVPB Last administered on 10/31/16 08:27; Admin Dose 125 MLS/HR; Start 10/30/16 at 18 :00 Sodium Hypochlorite (Dakin'S (Dilute 1/40%)) 1 applic BID IRR Last administered on 10/31/16 08:27; Admin Dose 1 APPLIC; Start 10/30/16 at 13:30 Miscellaneous Information (*Rx Drug Level Order Reminder*) VANCOMYCIN TROUGH AT 1700 ONCE ONCE XX ; Start 10/31/16 at 17:00; Stop 10/31/16 at 17:01 MARIA DOLORES HENRY MD Oct 31, 2016 15:31
--- NOTE | 2016-10-31 18:48 | PN ---
Date/Time of Note Date/Time of Note DATE: 10/31/16 TIME: 18:46 Assessment/Plan Lines/Catheters IV Catheter Type (from Nrs): Peripheral IV Fagan in Place (from Nrs): Yes Assessment/Plan Assessment/Plan Morbidly obese 36-year-old male with sepsis secondary to necrotizing soft tissue infection of the right thigh, gluteus and perineum s/p debridement POD#3 * Continue broad spectrum IV antibiotics * Follow up cultures * Continue local wound care. Wound care nurse eval and recommendations appreciated. * Leukocytosis improving * Consider DC Fagan in a.m. if wounds continue to improve. Discussed with primary care team, wound care nurses, and nurse. Subjective 24 Hr Interval Summary No acute events. Feels better. Afebrile. Exam/Review of Systems Vital Signs Vitals Vital Signs Date Time Temp Pulse Resp B/P Pulse Ox O2 Delivery O2 Flow Rate FiO2 10/31/16 16:31 97.5 101 20 129/71 94 10/30/16 19:56 Nasal Cannula 2.0 Intake and Output 10/30/16 10/30/16 10/31/16 15:00 23:00 07:00 Intake Total 2200 ml 2600 ml Output Total 2000 ml 3500 ml Balance 200 ml -900 ml Exam Free Text/Dictation GENERAL: Morbidly obese, awake, alert, oriented x 3. No acute distress. CARDIOVASCULAR: S1S2, regular rate and rhythm. No murmurs appreciated. RESPIRATORY: Clear to auscultation bilaterally. ABDOMEN: Obese, soft, bowel sounds present, nondistended, nontender to palpation. Reducible umbilical hernia palpated. WOUNDS: Clean and without drainage. Tissue of both wounds looks viable without necrosis. Results Result Diagram: 10/31/16 0643 10/31/16 0643 AURELIANO RANDALL MD Oct 31, 2016 18:48
[2016-11-01 00:04] VITALS: BP 140/67; RESP 20
[2016-11-01] MEDS: PIPER-TAZO 3.375 GM IV (PMX) 100 ML IVPB SCH ×4 (00:34→18:09)
[2016-11-01] MEDS: SOD CHLORIDE 0.9% 1,000 ML IV SCH ×3 (01:30→15:56)
[2016-11-01] MEDS: ACCU-CHEK XX SCH (01:49)
[2016-11-01] MEDS: VANCOMYCIN 2 GM in SOD CHLORIDE 0.9% 500 ML IVPB SCH ×2 (01:57→08:44)
[2016-11-01] MEDS: HYDROmorphONE 1 MG/ML SYG IV PRN ×3 (01:57→20:50)
[2016-11-01 03:58] VITALS: BP 144/88; RESP 19
[2016-11-01 07:42] VITALS: BP 124/70; RESP 20
[2016-11-01] MEDS: INSULIN ASPART [NOVOLOG] 3 ML PEN SC SCH ×7 (08:00→20:58)
[2016-11-01 08:13] LABS: WHITE BLOOD COUNT 15.6 10^3/ul (4.8-10.8)
[2016-11-01 08:14] LABS: ABNORMAL IP MESSAGE 1; BASOPHIL # 0.1 10^3/ul (0.0-0.1); BASOPHILS % 0.9 % (0.0-2.0); EOSINOPHILS # 0.5 10^3/ul (0.0-0.5); EOSINOPHILS % 3.3 % (0.0-7.0); HEMATOCRIT 42.5 % (42.0-52.0); HEMOGLOBIN 14.2 g/dl (14.0-18.0); LYMPHOCYTES # 3.1 10^3/ul (0.8-2.9); LYMPHOCYTES % 19.7 % (15.0-51.0); MEAN CORPUSCULAR HEMOGLOBIN 28.1 pg (29.0-33.0); MEAN CORPUSCULAR HGB CONC 33.4 g/dl (32.0-37.0); MEAN PLATELET VOLUME 11.1 fl (7.4-10.4); MONOCYTE # 1.8 10^3/ul (0.3-0.9); MONOCYTES % 11.2 % (0.0-11.0); NEUTROPHIL # 9.1 10^3/ul (1.6-7.5); NEUTROPHILS % 58.3 % (39.0-77.0); NUCLEATED RED BLOOD CELLS% 0.3 /100WBC (0.0-0.0); PLATELET COUNT 283 10^3/UL (140-415); POSITIVE DIFF @See below; RED BLOOD COUNT 5.06 10^6/ul (4.70-6.10); RED CELL DISTRIBUTION WIDTH 13.8 % (11.5-14.5)
[2016-11-01] MEDS: FAMOTIDINE 20 MG INJ IV SCH (08:44)
[2016-11-01] MEDS: INSULIN GLARGINE [LANtus] 3 ML PEN SC SCH (08:45)
[2016-11-01] MEDS: SODIUM HYPOCHLORITE 1/40% 1L IRRIG IRR SCH ×2 (08:48→21:03)
[2016-11-01 09:02] LABS: ANISOCYTOSIS 2+ (0-0); BASOPHILS % (M) 1 % (0-2); EOSINOPHILS % (M) 3 % (0-7); MICROCYTOSIS 2+ (0-0); MONOCYTES % (M) 16 % (0-11); MYELOCYTES % (M) 1 % (0.0-0.0); PLATELET ESTIMATE NORMAL; POLYCHROMASIA 1+ (0-0)
[2016-11-01 11:47] VITALS: BP 121/75; RESP 20
--- NOTE | 2016-11-01 12:31 | RADRPT ---
PROCEDURE: Ultrasound of the left lower extremity venous system. CLINICAL INDICATION: Left leg pain and swelling, deep venous thrombosis TECHNIQUE: Kapoor scale with and without compression, color doppler, spectral doppler of the venous system of the left lower extremity was performed. Venous augmentation maneuvers were utilized. COMPARISON: No prior studies are available for comparison. FINDINGS: Common femoral vein: Patent. Femoral vein: Patent. Popliteal vein: Patent. Calf veins: Patent. No soft tissue abnormalities are identified. IMPRESSION: No evidence of a deep vein thrombosis within the left lower extremity. RPTAT: AADD .Jagaur Carlin MD, MD Date Time Electronically viewed and signed by .Jaguar Carlin MD, on 11/01/2016 12:31 .B/
[2016-11-01] MEDS: DOCUSATE SODIUM 100 MG CAP PO PRN (13:21)
[2016-11-01] MEDS: HYDROCODONE/APAP (5/325) TAB PO PRN (13:22)
--- NOTE | 2016-11-01 15:23 | RADRPT ---
PROCEDURE: XR Left Foot. CLINICAL INDICATION: pain TECHNIQUE: AP, lateral and oblique views of the left foot was obtained. The images were reviewed on a PACS workstation. COMPARISON: None. FINDINGS: The bones of the foot appear intact, with no evidence of fracture, dislocation, or subluxation. The joint spaces are preserved. The bone mineralization is normal. An 8 m ovoid sclerotic lesions in the distal tibial metadiaphysis is compatible with a bone island. No significant soft tissue swelling is seen. IMPRESSION: Unremarkable left foot radiographs. RPTAT: QQ Physician Mustapha Date Time Electronically viewed and signed by Physician Mustapha on 11/01/2016 15:23 EUSEBIO/
[2016-11-01 15:40] VITALS: BP 124/74; RESP 20
--- NOTE | 2016-11-01 16:17 | PN ---
Date/Time of Note Date/Time of Note DATE: 11/01/16 TIME: 16:16 Assessment/Plan VTE Prophylaxis VTE Prophylaxis Intervention: SCD's Lines/Catheters IV Catheter Type (from Nrsg): Peripheral IV Urinary Cath still in place: Yes Reason Cath still needed: skin wounds contaminated by urine Assessment/Plan Assessment/Plan 36 yo M with morbid obesity, newly diagnosed poorly controlled DM admitted for sepsis 2/2 necrotizing soft tissue infection of R thigh/gluteus/perineum. sp first debridement 8.7. Case discussed at length with general surgery 8.8. Given complexity of pt's infection, transfer to higher level of care advised. Mikey/JILL on the case cont segundo hernandez vanc as no MRSA isolated DM2: a1c 10s-->weight based basal/bolus insulin Of note, serum bicarb a little high. pt with likely TOMAS based on body habitus. consider outpatient sleep study await to hear back from CM re transfer., possibly tomorrow?? Subjective 24 Hr Interval Summary Free Text/Dictation no acute overnight events Exam/Review of Systems Vital Signs Vitals Vital Signs Date Time Temp Pulse Resp B/P Pulse Ox O2 Delivery O2 Flow Rate FiO2 11/01/16 15:40 97.8 104 20 124/74 96 10/31/16 20:22 Nasal Cannula 2.0 Intake and Output 10/31/16 10/31/16 11/01/16 15:00 23:00 07:00 Intake Total 600 ml 3000 ml 3500 ml Output Total 6750 ml 3450 ml Balance 600 ml -3750 ml 50 ml Exam nad laying in bed no mrg lungs clear abd soft no rashes wound cultures reviewed, no MRSA Results Result Diagram: 11/01/16 0728 10/31/16 0643 Results 24 hrs Laboratory Tests Test 10/31/16 17:00 10/31/16 17:06 10/31/16 20:39 11/01/16 07:28 Vancomycin Level Trough 12.4 Bedside Glucose 155 116 White Blood Count 15.6 H Red Blood Count 5.06 Hemoglobin 14.2 Hematocrit 42.5 Mean Corpuscular Volume 84.0 Mean Corpuscular Hemoglobin 28.1 L Mean Corpuscular Hemoglobin Concent 33.4 Red Cell Distribution Width 13.8 Platelet Count 283 Mean Platelet Volume 11.1 H Neutrophils % 58.3 Segmented Neutrophils % (Manual) 53 Band Neutrophils % (Manual) 3 Lymphocytes % 19.7 Lymphocytes % (Manual) 24 Monocytes % 11.2 H Monocytes % (Manual) 16 H Eosinophils % 3.3 Eosinophils % (Manual) 3 Basophils % 0.9 Basophils % (Manual) 1 Myelocytes % (Manual) 1 H Nucleated Red Blood Cells % 0.3 H Neutrophils # 9.1 H Neutrophils # (Manual) 8.3 H Band Neutrophils # 0.4 Absolute Lymphocytes (Manual) 3.7 H Lymphocytes # 3.1 H Monocytes # 1.8 H Absolute Monocytes (Manual) 2.4 H Eosinophils # 0.5 Basophils # 0.1 Basophils # (Manual) 0.1 H Myelocytes # 0.1 H Nucleated Red Blood Cells # 0.0 Platelet Estimate NORMAL Polychromasia 1+ Anisocytosis 2+ Microcytosis 2+ Test 11/01/16 08:39 11/01/16 12:01 Bedside Glucose 124 162 Medications Medications Current Medications Hydromorphone HCl (Dilaudid) 1 mg Q4 PRN IV PAIN LEVEL 6-10 Last administered on 11/01/16 15:56; Admin Dose 1 MG; Start 10/28/16 at 22:30 Acetaminophen/ Hydrocodone Bitart ([place] (5/325)) 1 tab Q6H PRN PO PAIN LEVEL 6 -10 Last administered on 11/01/16 13:22; Admin Dose 1 TAB; Start 10/28/16 at 22: 30 Acetaminophen/ Hydrocodone Bitart ([place] (10/325)) 1 tab Q6H PRN PO PAIN; Start 10/28/16 at 22:30 Acetaminophen (Tylenol Tab) 650 mg Q6H PRN PO PAIN AND OR ELEVATED TEMP; Start 10/28/16 at 22:30 Ondansetron HCl 4 mg 4 mg Q6H PRN IV NAUSEA AND/OR VOMITING; Start 10/28/16 at 22:30 Piperacillin Sod/ Tazobactam Sod (Zosyn 3.375gm/ 100 ml (Pmx)) 100 ml @ 200 mls /hr Q6 IVPB Last administered on 11/01/16 13:16; Admin Dose 200 MLS/HR; Start 10/29/16 at 00:00 Miscellaneous Information 1 ea NOTE XX ; Start 10/28/16 at 23:30 Glucose (Glutose) 15 gm Q15M PRN PO DECREASED GLUCOSE; Start 10/28/16 at 23:30 Glucose (Glutose) 22.5 gm Q15M PRN PO DECREASED GLUCOSE; Start 10/28/16 at 23:30 Dextrose (D50w Syringe) 25 ml Q15M PRN IV DECREASED GLUCOSE; Start 10/28/16 at 23:30 Dextrose (D50w Syringe) 50 ml Q15M PRN IV DECREASED GLUCOSE; Start 10/28/16 at 23:30 Glucagon (Glucagen) 1 mg Q15M PRN IM DECREASED GLUCOSE; Start 10/28/16 at 23:30 Glucose 15 gm 15 gm Q15M PRN BUCCAL DECREASED GLUCOSE; Start 10/28/16 at 23:30 Sodium Chloride (NS) 1,000 ml @ 100 mls/hr Q10H IV Last administered on 15:56; Admin Dose 100 MLS/HR; Start 10/29/16 at 03:30 Insulin Glargine (Lantus) 27 unit DAILY@08 SC Last administered on 11/01/16 08 :45; Admin Dose 27 UNIT; Start 10/30/16 at 08:00 Diagnostic Test (Pha) 1 ea 1 ea 02 XX ; Start 10/30/16 at 02:00 Vancomycin HCl/ Sodium Chloride (Vancocin/NS) 500 ml @ 125 mls/hr Q8H IVPB Last administered on 11/01/16 08:44; Admin Dose 125 MLS/HR; Start 10/30/16 at 18 :00 Sodium Hypochlorite (Dakin'S (Dilute 1/40%)) 1 applic BID IRR Last administered on 11/01/16 08:48; Admin Dose 1 APPLIC; Start 10/30/16 at 13:30 Famotidine (Pepcid) 20 mg BID PO ; Start 11/01/16 at 21:00 Miscellaneous Information (*Rx Drug Level Order Reminder*) VANCOMYCIN TROUGH AT 1700 ONCE ONCE XX ; Start 11/02/16 at 17:00; Stop 11/02/16 at 17:01 Docusate Sodium (Colace) 100 mg DAILY PRN PO CONSTIPATION Last administered on 11/01/16 13:21; Admin Dose 100 MG; Start 11/01/16 at 11:00 MARIA DOLORES HENRY MD Nov 01, 2016 16:17
[2016-11-01 19:44] VITALS: BP 137/63; RESP 18
--- NOTE | 2016-11-01 20:32 | PN ---
Date/Time of Note Date/Time of Note DATE: 11/01/16 TIME: 20:30 Assessment/Plan Lines/Catheters IV Catheter Type (from Nrsg): Peripheral IV Fagan in Place (from Nrsg): Yes Assessment/Plan Assessment/Plan Morbidly obese 36-year-old male with sepsis secondary to necrotizing soft tissue infection of the right thigh, gluteus and perineum s/p debridement POD#4 * Continue broad spectrum IV antibiotics * Cultures show methicillin sensitive staph aureus. * Continue local wound care. Wound care nurse eval and recommendations appreciated. * Leukocytosis improving * Physical therapy Discussed with primary care team, wound care nurses, and nurse. Subjective 24 Hr Interval Summary Feels better. Denies pain. Afebrile. Exam/Review of Systems Vital Signs Vitals Vital Signs Date Time Temp Pulse Resp B/P Pulse Ox O2 Delivery O2 Flow Rate FiO2 11/01/16 19:44 97.8 95 18 137/63 95 10/31/16 20:22 Nasal Cannula 2.0 Intake and Output 10/31/16 10/31/16 11/01/16 15:00 23:00 07:00 Intake Total 600 ml 3000 ml 3500 ml Output Total 6750 ml 3450 ml Balance 600 ml -3750 ml 50 ml Exam Free Text/Dictation GENERAL: Morbidly obese, awake, alert, oriented x 3. No acute distress. CARDIOVASCULAR: S1S2, regular rate and rhythm. No murmurs appreciated. RESPIRATORY: Clear to auscultation bilaterally. ABDOMEN: Obese, soft, bowel sounds present, nondistended, nontender to palpation. Reducible umbilical hernia palpated. WOUNDS: Clean and without drainage. Tissue of both wounds looks viable without necrosis. Results Result Diagram: 11/01/16 0728 10/31/16 0643 AURELIANO RANDALL MD Nov 01, 2016 20:32
[2016-11-01] MEDS: FAMOTIDINE 20 MG TAB PO SCH (20:59)
[2016-11-02] MEDS: PIPER-TAZO 3.375 GM IV (PMX) 100 ML IVPB SCH ×4 (00:17→17:57)
[2016-11-02 00:41] VITALS: BP 136/63; RESP 18
[2016-11-02 01:59] VITALS: BP 138/83; RESP 16
[2016-11-02] MEDS: ACCU-CHEK XX SCH (02:00)
[2016-11-02] MEDS: HYDROmorphONE 1 MG/ML SYG IV PRN ×3 (02:06→22:04)
[2016-11-02 07:41] VITALS: BP 140/80; RESP 18
[2016-11-02] MEDS: INSULIN GLARGINE [LANtus] 3 ML PEN SC SCH (08:08)
[2016-11-02] MEDS: INSULIN ASPART [NOVOLOG] 3 ML PEN SC SCH ×7 (08:19→21:00)
[2016-11-02] MEDS: FAMOTIDINE 20 MG TAB PO SCH ×2 (08:21→21:56)
[2016-11-02] MEDS: SODIUM HYPOCHLORITE 1/40% 1L IRRIG IRR SCH ×2 (09:16→21:00)
[2016-11-02 14:21] VITALS: BP 135/77; RESP 18
[2016-11-02] MEDS: HYDROCODONE/APAP (5/325) TAB PO PRN (14:41)
[2016-11-02] MEDS: DOCUSATE SODIUM 100 MG CAP PO PRN (18:09)
--- NOTE | 2016-11-02 18:42 | PN ---
Date/Time of Note Date/Time of Note DATE: 11/02/16 TIME: 18:41 Assessment/Plan Lines/Catheters IV Catheter Type (from Nrs): Saline Lock Fagan in Place (from Nrsg): Yes Assessment/Plan Assessment/Plan Morbidly obese 36-year-old male with sepsis secondary to necrotizing soft tissue infection of the right thigh, gluteus and perineum s/p debridement POD#5 * Continue broad spectrum IV antibiotics * Cultures show methicillin sensitive staph aureus. * Continue local wound care. Wound care nurse eval and recommendations appreciated. * Leukocytosis improving * Physical therapy * DC Fagan * Check labs in a.m. * If continues to improve could potentially be discharged with outpatient follow -up either at [facility] or wound care center. Discussed with primary care team, wound care nurses, and nurse. Subjective 24 Hr Interval Summary Doing well. Afebrile. Exam/Review of Systems Vital Signs Vitals Vital Signs Date Time Temp Pulse Resp B/P Pulse Ox O2 Delivery O2 Flow Rate FiO2 11/02/16 14:21 98.2 96 18 135/77 92 11/01/16 21:16 Nasal Cannula 2.0 Intake and Output 11/01/16 11/01/16 11/02/16 15:00 23:00 07:00 Intake Total 1200 ml 100 ml Output Total 5350 ml Balance -4150 ml 100 ml Exam Free Text/Dictation GENERAL: Morbidly obese, awake, alert, oriented x 3. No acute distress. CARDIOVASCULAR: S1S2, regular rate and rhythm. No murmurs appreciated. RESPIRATORY: Clear to auscultation bilaterally. ABDOMEN: Obese, soft, bowel sounds present, nondistended, nontender to palpation. Reducible umbilical hernia palpated. WOUNDS: Clean and without drainage. Tissue of both wounds looks viable without necrosis and with healthy granulation tissue. Results Result Diagram: 11/01/16 0728 10/31/16 0643 AURELIANO RANDALL MD Nov 02, 2016 18:42
[2016-11-02] MEDS ORDERED: MAGNESIUM HYDROXIDE 30ML CUP PO ONE (19:00)
--- NOTE | 2016-11-02 19:01 | PN ---
Date/Time of Note Date/Time of Note DATE: 11/02/16 TIME: 18:58 Assessment/Plan VTE Prophylaxis VTE Prophylaxis Intervention: SCD's Lines/Catheters IV Catheter Type (from Nrsg): Saline Lock Urinary Cath still in place: Yes Reason Cath still needed: other (indicate) Assessment/Plan Assessment/Plan 36 yo M with morbid obesity, newly diagnosed poorly controlled DM admitted for sepsis 2/2 necrotizing soft tissue infection of R thigh/gluteus/perineum. sp first debridement 8.7. Case discussed at length with general surgery 8.8. Given complexity of pt's infection, transfer to higher level of care advised. Mouna on the case cont davidsegundo'd vanc as no MRSA isolated DM2: a1c 10s-->weight based basal/bolus insulin Of note, serum bicarb a little high. pt with likely TOMAS based on body habitus. consider outpatient sleep study TALK TO GEN SURG IN AM ABOUT DISPO. Per gen surg could potentially be discharged on PO abx, but unclear what exactly we should cover for. ?skin florencia? Subjective 24 Hr Interval Summary Free Text/Dictation In good spirits,foot pain still present Exam/Review of Systems Vital Signs Vitals Vital Signs Date Time Temp Pulse Resp B/P Pulse Ox O2 Delivery O2 Flow Rate FiO2 11/02/16 14:21 98.2 96 18 135/77 92 11/01/16 21:16 Nasal Cannula 2.0 Intake and Output 11/01/16 11/01/16 11/02/16 15:00 23:00 07:00 Intake Total 1200 ml 100 ml Output Total 5350 ml Balance -4150 ml 100 ml Exam nad, laying in bed no mrg lungs clear abd soft scrotal swelling slightly improved surgical wound sites clean Results Result Diagram: 11/01/16 0728 10/31/16 0643 Results 24 hrs Laboratory Tests Test 11/01/16 20:54 11/02/16 02:05 11/02/16 08:00 11/02/16 12:32 Bedside Glucose 216 157 166 163 Test 11/02/16 16:43 11/02/16 17:56 Uric Acid 4.4 Vancomycin Level Trough < 5.0 L Bedside Glucose 146 Medications Medications Current Medications Hydromorphone HCl (Dilaudid) 1 mg Q4 PRN IV PAIN LEVEL 6-10 Last administered on 11/02/16t 09:17; Admin Dose 1 MG; Start 10/28/16 at 22:30 Acetaminophen/ Hydrocodone Bitart ([place] (5/325)) 1 tab Q6H PRN PO PAIN LEVEL 6 -10 Last administered on 11/02/16 14:41; Admin Dose 1 TAB; Start 10/28/16 at 22: 30 Acetaminophen/ Hydrocodone Bitart ([place] (10/325)) 1 tab Q6H PRN PO PAIN; Start 10/28/16 at 22:30 Acetaminophen (Tylenol Tab) 650 mg Q6H PRN PO PAIN AND OR ELEVATED TEMP; Start 10/28/16 at 22:30 Ondansetron HCl 4 mg 4 mg Q6H PRN IV NAUSEA AND/OR VOMITING; Start 10/28/16 at 22:30 Piperacillin Sod/ Tazobactam Sod (Zosyn 3.375gm/ 100 ml (Pmx)) 100 ml @ 200 mls /hr Q6 IVPB Last administered on 11/02/16 17:57; Admin Dose 200 MLS/HR; Start 10/29/16 at 00:00 Miscellaneous Information 1 ea NOTE XX ; Start 10/28/16 at 23:30 Glucose (Glutose) 15 gm Q15M PRN PO DECREASED GLUCOSE; Start 10/28/16 at 23:30 Glucose (Glutose) 22.5 gm Q15M PRN PO DECREASED GLUCOSE; Start 10/28/16 at 23:30 Dextrose (D50w Syringe) 25 ml Q15M PRN IV DECREASED GLUCOSE; Start 10/28/16 at 23:30 Dextrose (D50w Syringe) 50 ml Q15M PRN IV DECREASED GLUCOSE; Start 10/28/16 at 23:30 Glucagon (Glucagen) 1 mg Q15M PRN IM DECREASED GLUCOSE; Start 10/28/16 at 23:30 Glucose (Glutose) 15 gm Q15M PRN BUCCAL DECREASED GLUCOSE; Start 10/28/16 at 23: 30 Insulin Glargine (Lantus) 27 unit DAILY@08 SC Last administered on 11/02/16 08 :08; Admin Dose 27 UNIT; Start 10/30/16 at 08:00 Diagnostic Test (Pha) (Accu-Chek) 1 ea 02 XX ; Start 10/30/16 at 02:00 Sodium Hypochlorite (Dakin'S (Dilute 1/40%)) 1 applic BID IRR Last administered on 11/02/16 09:16; Admin Dose 1 APPLIC; Start 10/30/16 at 13:30 Famotidine (Pepcid) 20 mg BID PO Last administered on 11/02/16 08:21; Admin Dose 20 MG; Start 11/01/16 at 21:00 Docusate Sodium (Colace) 100 mg DAILY PRN PO CONSTIPATION Last administered on 11/02/16 18:09; Admin Dose 100 MG; Start 11/01/16 at 11:00 Magnesium Hydroxide (Milk Of Mag) 30 ml ONCE ONCE PO ; Start 11/02/16 at 19:00 ; Stop 11/02/16 at 19:01 MARIA DOLORES HENRY MD Nov 02, 2016 19:01
[2016-11-02 19:56] VITALS: BP 123/74; PULSE 100
[2016-11-03] MEDS: PIPER-TAZO 3.375 GM IV (PMX) 100 ML IVPB SCH ×4 (00:39→17:54)
[2016-11-03] MEDS: ACCU-CHEK XX SCH (02:00)
[2016-11-03 06:03] LABS: ABNORMAL IP MESSAGE 1; HEMATOCRIT 44.6 % (42.0-52.0); HEMOGLOBIN 14.7 g/dl (14.0-18.0); MEAN CORPUSCULAR HEMOGLOBIN 27.8 pg (29.0-33.0); MEAN CORPUSCULAR VOLUME 84.5 fl (82.0-101.0); MEAN PLATELET VOLUME 10.7 fl (7.4-10.4); PLATELET COUNT 345 10^3/UL (140-415); POSITIVE DIFF @See below; RED BLOOD COUNT 5.28 10^6/ul (4.70-6.10); RED CELL DISTRIBUTION WIDTH 13.8 % (11.5-14.5); WHITE BLOOD COUNT 17.1 10^3/ul (4.8-10.8)
[2016-11-03 06:33] LABS: CALCIUM 9.2 mg/dl (8.4-10.2); CREATININE 0.89 mg/dl (0.61-1.24); POTASSIUM 4.1 mmol/L (3.5-5.1)
[2016-11-03 08:17] VITALS: BP 131/82; RESP 20
[2016-11-03] MEDS: SODIUM HYPOCHLORITE 1/40% 1L IRRIG IRR SCH ×2 (08:37→20:54)
[2016-11-03] MEDS: FAMOTIDINE 20 MG TAB PO SCH ×2 (08:37→20:51)
[2016-11-03] MEDS: INSULIN ASPART [NOVOLOG] 3 ML PEN SC SCH ×7 (08:45→20:54)
[2016-11-03] MEDS: INSULIN GLARGINE [LANtus] 3 ML PEN SC SCH (08:45)
[2016-11-03 09:23] LABS: BASOPHILS % (M) 1 % (0-2); EOSINOPHILS % (M) 8 % (0-7); GIANT THROMBO% (M) 1 % (0-0); MONOCYTES % (M) 10 % (0-11); MYELOCYTES % (M) 2 % (0.0-0.0); PLATELET ESTIMATE NORMAL; POIKILOCYTOSIS 3+ (0-0); POLYCHROMASIA 1+ (0-0)
[2016-11-03] MEDS: HYDROmorphONE 1 MG/ML SYG IV PRN ×2 (12:25→22:58)
--- NOTE | 2016-11-03 12:32 | PN ---
Date/Time of Note Date/Time of Note DATE: 11/03/16 TIME: 12:30 Assessment/Plan Lines/Catheters IV Catheter Type (from Nrs): Saline Lock Fagan in Place (from Nrs): No Assessment/Plan Assessment/Plan Morbidly obese 36-year-old male with sepsis secondary to necrotizing soft tissue infection of the right thigh, gluteus and perineum s/p debridement POD#6 * Continue broad spectrum IV antibiotic * Cultures show methicillin sensitive staph aureus. * Continue local wound care. Wound care nurse eval and recommendations appreciated. * Physical therapy * White blood cell count 17,000. We will repeat CT scan to evaluate for potential deep tissue infection. Discussed with primary care team, wound care nurses, and nurse. Subjective 24 Hr Interval Summary No acute issues. Afebrile. Exam/Review of Systems Vital Signs Vitals Vital Signs Date Time Temp Pulse Resp B/P Pulse Ox O2 Delivery O2 Flow Rate FiO2 11/03/16 08:17 97.8 95 20 131/82 93 11/02/16 19:56 Room Air 11/01/16 21:16 2.0 Intake and Output 11/02/16 11/02/16 11/03/16 15:00 23:00 07:00 Intake Total 580 ml 3300 ml 1000 ml Output Total 3000 ml 2500 ml 1000 ml Balance -2420 ml 800 ml 0 ml Exam Free Text/Dictation GENERAL: Morbidly obese, awake, alert, oriented x 3. No acute distress. CARDIOVASCULAR: S1S2, regular rate and rhythm. No murmurs appreciated. RESPIRATORY: Clear to auscultation bilaterally. ABDOMEN: Obese, soft, bowel sounds present, nondistended, nontender to palpation. Reducible umbilical hernia palpated. WOUNDS: Clean and without drainage. Tissue of both wounds looks viable without necrosis and with healthy granulation tissue. Results Result Diagram: 11/03/16 0528 11/03/16 0528 AURELIANO RANDALL MD Nov 03, 2016 12:32
--- NOTE | 2016-11-03 15:07 | PN ---
Date/Time of Note Date/Time of Note DATE: 11/03/16 TIME: 15:05 Assessment/Plan VTE Prophylaxis VTE Prophylaxis Intervention: SCD's Lines/Catheters IV Catheter Type (from Nrs): Saline Lock Urinary Cath still in place: No Assessment/Plan Assessment/Plan 36 yo M with morbid obesity, newly diagnosed poorly controlled DM admitted for sepsis 2/2 necrotizing soft tissue infection of R thigh/gluteus/perineum. sp first debridement 8.7. Case dw gen surg again today. Given uptick in WBCs, will repeat imaging. If imaging improved, consider discharge with PO abx tomorrow wounds grew out CONS (NOT staph aureus) and GBS. Consider Keflex If imaging worse, consider restarting attempt at transfer process DM2: a1c 10s-->weight based basal/bolus insulin started. will need glucometer at discharge Of note, serum bicarb a little high. pt with likely TOMAS based on body habitus. consider outpatient sleep study Subjective 24 Hr Interval Summary Free Text/Dictation Pt has been getting out of bed a little. [facility] transfer request denied Exam/Review of Systems Vital Signs Vitals Vital Signs Date Time Temp Pulse Resp B/P Pulse Ox O2 Delivery O2 Flow Rate FiO2 11/03/16 08:17 97.8 95 20 131/82 93 11/02/16 19:56 Room Air 11/01/16 21:16 2.0 Intake and Output 11/02/16 11/02/16 11/03/16 15:00 23:00 07:00 Intake Total 580 ml 3300 ml 1000 ml Output Total 3000 ml 2500 ml 1000 ml Balance -2420 ml 800 ml 0 ml Exam nad no mrg abd soft scrotal swelling improved wound sites c/d/i Results Result Diagram: 11/03/16 0528 11/03/16 0528 Results 24 hrs Laboratory Tests Test 11/02/16 16:43 11/02/16 17:56 11/02/16 21:55 11/03/16 05:28 Uric Acid 4.4 Vancomycin Level Trough < 5.0 L Bedside Glucose 146 156 White Blood Count 17.1 H Red Blood Count 5.28 Hemoglobin 14.7 Hematocrit 44.6 Mean Corpuscular Volume 84.5 Mean Corpuscular Hemoglobin 27.8 L Mean Corpuscular Hemoglobin Concent 33.0 Red Cell Distribution Width 13.8 Platelet Count 345 # Mean Platelet Volume 10.7 H Neutrophils % Segmented Neutrophils % (Manual) 61 Lymphocytes % Lymphocytes % (Manual) 17 Monocytes % Monocytes % (Manual) 10 Eosinophils % Eosinophils % (Manual) 8 H Basophils % Basophils % (Manual) 1 Myelocytes % (Manual) 2 H Nucleated Red Blood Cells % 0.0 Neutrophils # Absolute Lymphocytes (Manual) 2.9 Lymphocytes # Monocytes # Absolute Monocytes (Manual) 1.7 H Eosinophils # Basophils # Basophils # (Manual) 0.1 H Myelocytes # 0.3 H Nucleated Red Blood Cells # Thrombocytosis 1 H Platelet Estimate NORMAL Polychromasia 1+ Poikilocytosis 3+ Sodium Level 141 Potassium Level 4.1 Chloride Level 97 Carbon Dioxide Level 30 Anion Gap 18 H Blood Urea Nitrogen 10 Creatinine 0.89 Glucose Level 181 Calcium Level 9.2 Test 11/03/16 08:36 11/03/16 12:23 Bedside Glucose 159 169 Medications Medications Current Medications Hydromorphone HCl (Dilaudid) 1 mg Q4 PRN IV PAIN LEVEL 6-10 Last administered on 11/03/16 12:25; Admin Dose 1 MG; Start 10/28/16 at 22:30 Acetaminophen/ Hydrocodone Bitart ([place] (5/325)) 1 tab Q6H PRN PO PAIN LEVEL 6 -10 Last administered on 11/02/16 14:41; Admin Dose 1 TAB; Start 10/28/16 at 22: 30 Acetaminophen/ Hydrocodone Bitart ([place] (10/325)) 1 tab Q6H PRN PO PAIN; Start 10/28/16 at 22:30 Acetaminophen (Tylenol Tab) 650 mg Q6H PRN PO PAIN AND OR ELEVATED TEMP; Start 10/28/16 at 22:30 Ondansetron HCl 4 mg 4 mg Q6H PRN IV NAUSEA AND/OR VOMITING; Start 10/28/16 at 22:30 Piperacillin Sod/ Tazobactam Sod (Zosyn 3.375gm/ 100 ml (Pmx)) 100 ml @ 200 mls /hr Q6 IVPB Last administered on 11/03/16 12:25; Admin Dose 200 MLS/HR; Start 10/29/16 at 00:00 Miscellaneous Information 1 ea NOTE XX ; Start 10/28/16 at 23:30 Glucose (Glutose) 15 gm Q15M PRN PO DECREASED GLUCOSE; Start 10/28/16 at 23:30 Glucose (Glutose) 22.5 gm Q15M PRN PO DECREASED GLUCOSE; Start 10/28/16 at 23:30 Dextrose (D50w Syringe) 25 ml Q15M PRN IV DECREASED GLUCOSE; Start 10/28/16 at 23:30 Dextrose (D50w Syringe) 50 ml Q15M PRN IV DECREASED GLUCOSE; Start 10/28/16 at 23:30 Glucagon (Glucagen) 1 mg Q15M PRN IM DECREASED GLUCOSE; Start 10/28/16 at 23:30 Glucose (Glutose) 15 gm Q15M PRN BUCCAL DECREASED GLUCOSE; Start 10/28/16 at 23: 30 Insulin Glargine (Lantus) 27 unit DAILY@08 SC Last administered on 11/03/16 08 :45; Admin Dose 27 UNIT; Start 10/30/16 at 08:00 Diagnostic Test (Pha) (Accu-Chek) 1 ea 02 XX ; Start 10/30/16 at 02:00 Sodium Hypochlorite (Dakin'S (Dilute 1/40%)) 1 applic BID IRR Last administered on 11/03/16 08:37; Admin Dose 1 APPLIC; Start 10/30/16 at 13:30 Famotidine (Pepcid) 20 mg BID PO Last administered on 11/03/16 08:37; Admin Dose 20 MG; Start 11/01/16 at 21:00 Docusate Sodium (Colace) 100 mg DAILY PRN PO CONSTIPATION Last administered on 11/02/16 18:09; Admin Dose 100 MG; Start 11/01/16 at 11:00 MARIA DOLORES HENRY MD Nov 03, 2016 15:06
[2016-11-03] MEDS ORDERED: IOHEXOL 300MG/ML 150 ML BTL ONE (17:12)
[2016-11-03] MEDS ORDERED: SOD CHLORIDE 0.9% 100 ML ONE (17:12)
--- NOTE | 2016-11-03 19:03 | RADRPT ---
PROCEDURE: CT ABDOMEN AND PELVIS WITH CONTRAST: CLINICAL INDICATION: 36 years of age, male, follow-up abdomen pelvis infection COMPARISON: CT abdomen pelvis October 28, 2016 TECHNIQUE: CT of the abdomen, and pelvis was performed following administration of 100 mL IV Omni paque-300. Oral contrast was not administered prior to the examination. Coronal and sagittal reformatted images were obtained from the axial source images. Images were revi ewed on a high-resolution PACS workstation. Dose information: Based on a 32 cm phantom, the estimated radiation dose (CTDI vol mGy for each seri es in this exam is 24 . The estimated cumulative dose (DLP mGy-cm) is 1574 . FINDINGS: LUNG BASES: Normal. ABDOMEN/PELVIS: Liver: Normal. Portal veins, splenic vein and SMV are patent. Hepatic veins are patent. Gallbladder: Cholelithiasis without evidence of acute cholecystitis or biliary obstruction. Bile ducts: No intrahepatic or extrahepatic biliary duct dilatation. Spleen: Normal. Pancreas: Normal. Adrenal glands: Normal. Kidneys and ureters: Normal. Aorta and IVC: Patent. Lymph nodes: Enlarged right greater than left inguinal and pelvic sidewall lymph nodes are likely re active and are similar to prior exam. Gastrointestinal tract: Normal. Appendix: Normal Bladder: Trace intraluminal gas is likely from recent catheterization. Mild wall thickening may be d ue to its contracted state or cystitis. Pelvic Organs: Prostate gland and seminal vesicles are unremarkable. Peritoneal cavity: No free fluid or free intraperitoneal air. Abdominal wall: There is a soft tissue edema and soft tissue gas in the subcutaneous fat of the medi al right thigh extending to the perineum that was also present on prior exam. Extent of soft tissue infection in the right thigh is incompletely imaged. Soft tissue gas appears to have decreased. N egative for proximal extension into the true pelvis. Small fat containing umbilical hernia. Right a bdominal wall is incompletely imaged due to the patient's obesity. BONES: Musculoskeletal: Degenerative changes in spine. No suspicious bone lesions. IMPRESSION: Necrotizing soft tissue infection subcutaneous fat medial right thigh with soft tissue edema and sof t tissue gas is incompletely imaged. Where visualized, the quantity of gas is mildly decreased. Ne gative for evidence of extension into the true pelvis Trace gas in urinary bladder is likely from the recent catheterization. Recommend correlation with medical record. Mild wall thickening of the urinary bladder may be due to its contracted state or cy stitis. Recommend correlation with urinalysis. Cholelithiasis without evidence of acute cholecystitis. RPTAT: HCTS Lou Gaming, Physician Date Time Electronically viewed and signed by Lou Gaming, Physician on 11/03/2016 19:03 CS/
[2016-11-03 20:10] VITALS: BP 131/78; RESP 19
[2016-11-04] MEDS: PIPER-TAZO 3.375 GM IV (PMX) 100 ML IVPB SCH ×4 (00:01→17:38)
[2016-11-04] MEDS: ACCU-CHEK XX SCH (01:11)
[2016-11-04 02:00] VITALS: BP 126/71; RESP 18
[2016-11-04] MEDS: HYDROCODONE/APAP (5/325) TAB PO PRN (05:37)
[2016-11-04 05:43] LABS: ABNORMAL IP MESSAGE 1; BASOPHIL # 0.1 10^3/ul (0.0-0.1); BASOPHILS % 0.7 % (0.0-2.0); EOSINOPHILS # 0.8 10^3/ul (0.0-0.5); EOSINOPHILS % 5.2 % (0.0-7.0); HEMATOCRIT 43.9 % (42.0-52.0); HEMOGLOBIN 14.2 g/dl (14.0-18.0); LYMPHOCYTES % 20.2 % (15.0-51.0); MEAN CORPUSCULAR HEMOGLOBIN 27.6 pg (29.0-33.0); MEAN CORPUSCULAR HGB CONC 32.3 g/dl (32.0-37.0); MEAN CORPUSCULAR VOLUME 85.2 fl (82.0-101.0); MEAN PLATELET VOLUME 10.8 fl (7.4-10.4); MONOCYTE # 1.7 10^3/ul (0.3-0.9); MONOCYTES % 11.2 % (0.0-11.0); NEUTROPHIL # 8.2 10^3/ul (1.6-7.5); NEUTROPHILS % 55.7 % (39.0-77.0); PLATELET COUNT 347 10^3/UL (140-415); POSITIVE DIFF @See below; RED BLOOD COUNT 5.15 10^6/ul (4.70-6.10); WHITE BLOOD COUNT 14.7 10^3/ul (4.8-10.8)
[2016-11-04 06:08] LABS: CALCIUM 9.1 mg/dl (8.4-10.2); CREATININE 0.95 mg/dl (0.61-1.24); POTASSIUM 3.9 mmol/L (3.5-5.1)
[2016-11-04 07:56] VITALS: BP 117/70; RESP 20
[2016-11-04] MEDS: FAMOTIDINE 20 MG TAB PO SCH ×2 (08:15→20:19)
[2016-11-04] MEDS: SODIUM HYPOCHLORITE 1/40% 1L IRRIG IRR SCH ×2 (08:16→20:20)
[2016-11-04] MEDS: INSULIN ASPART [NOVOLOG] 3 ML PEN SC SCH ×7 (08:28→20:20)
[2016-11-04] MEDS: INSULIN GLARGINE [LANtus] 3 ML PEN SC SCH (08:29)
--- NOTE | 2016-11-04 09:00 | PN ---
Date/Time of Note Date/Time of Note DATE: 11/04/16 TIME: 08:56 Assessment/Plan Lines/Catheters IV Catheter Type (from Nrs): Saline Lock Fagan in Place (from Nrs): No Assessment/Plan Assessment/Plan Morbidly obese 36-year-old male with sepsis secondary to necrotizing soft tissue infection of the right thigh, gluteus and perineum s/p debridement POD#7 * Continue broad spectrum IV antibiotic * Cultures show methicillin sensitive staph aureus. * Continue local wound care. Wound care nurse eval and recommendations appreciated. * Physical therapy * Repeat CT scan shows improvement in gluteal soft tissue gas. However, right medial thigh still has soft tissue gas present. Even though wound seems to be granulating, he likely has a deeper soft tissue necrotizing infection. This will require a deeper wide local debridement. I would definitely recommend transfer to a tertiary care institution while the patient is still stable so that he may undergo a wide excisional debridement and wound care at a higher level of care which will have the resources to deal with this. Discussed with primary care team, wound care nurses, and nurse. Subjective 24 Hr Interval Summary Feels okay. No complaints. Afebrile. Exam/Review of Systems Vital Signs Vitals Vital Signs Date Time Temp Pulse Resp B/P Pulse Ox O2 Delivery O2 Flow Rate FiO2 11/04/16 07:56 97.7 89 20 117/70 96 11/02/16 19:56 Room Air 11/01/16 21:16 2.0 Intake and Output 11/03/16 11/03/16 11/04/16 15:00 23:00 07:00 Intake Total 100 ml 1300 ml 900 ml Output Total 950 ml 1200 ml Balance 100 ml 350 ml -300 ml Exam Free Text/Dictation GENERAL: Morbidly obese, awake, alert, oriented x 3. No acute distress. CARDIOVASCULAR: S1S2, regular rate and rhythm. No murmurs appreciated. RESPIRATORY: Clear to auscultation bilaterally. ABDOMEN: Obese, soft, bowel sounds present, nondistended, nontender to palpation. Reducible umbilical hernia palpated. WOUNDS: Clean and without drainage. Tissue of both wounds looks viable without necrosis and with healthy granulation tissue. Results Result Diagram: 11/04/16 0457 11/04/16 0457 Procedures Procedures PROCEDURE: CT ABDOMEN AND PELVIS WITH CONTRAST: CLINICAL INDICATION: 36 years of age, male, follow-up abdomen pelvis infection COMPARISON: CT abdomen pelvis October 28, 2016 TECHNIQUE: CT of the abdomen, and pelvis was performed following administration of 100 mL IV Omnipaque-300. Oral contrast was not administered prior to the examination. Coronal and sagittal reformatted images were obtained from the axial source images. Images were reviewed on a high-resolution PACS workstation. Dose information: Based on a 32 cm phantom, the estimated radiation dose (CTDI vol mGy for each series in this exam is 24 . The estimated cumulative dose ( DLP mGy-cm) is 1574 . FINDINGS: LUNG BASES: Normal. ABDOMEN/PELVIS: Liver: Normal. Portal veins, splenic vein and SMV are patent. Hepatic veins are patent. Gallbladder: Cholelithiasis without evidence of acute cholecystitis or biliary obstruction. Bile ducts: No intrahepatic or extrahepatic biliary duct dilatation. Spleen: Normal. Pancreas: Normal. Adrenal glands: Normal. Kidneys and ureters: Normal. Aorta and IVC: Patent. Lymph nodes: Enlarged right greater than left inguinal and pelvic sidewall lymph nodes are likely reactive and are similar to prior exam. Gastrointestinal tract: Normal. Appendix: Normal Bladder: Trace intraluminal gas is likely from recent catheterization. Mild wall thickening may be due to its contracted state or cystitis. Pelvic Organs: Prostate gland and seminal vesicles are unremarkable. Peritoneal cavity: No free fluid or free intraperitoneal air. Abdominal wall: There is a soft tissue edema and soft tissue gas in the subcutaneous fat of the medial right thigh extending to the perineum that was also present on prior exam. Extent of soft tissue infection in the right thigh is incompletely imaged. Soft tissue gas appears to have decreased. Negative for proximal extension into the true pelvis. Small fat containing umbilical hernia. Right abdominal wall is incompletely imaged due to the patient's obesity. BONES: Musculoskeletal: Degenerative changes in spine. No suspicious bone lesions. IMPRESSION: Necrotizing soft tissue infection subcutaneous fat medial right thigh with soft tissue edema and soft tissue gas is incompletely imaged. Where visualized, the quantity of gas is mildly decreased. Negative for evidence of extension into the true pelvis Trace gas in urinary bladder is likely from the recent catheterization. Recommend correlation with medical record. Mild wall thickening of the urinary bladder may be due to its contracted state or cystitis. Recommend correlation with urinalysis. Cholelithiasis without evidence of acute cholecystitis. RPTAT: HCTS Lou Gaming, Physician Date Time Electronically viewed and signed by Lou Gaming, Physician on 11/03/2016 19: 03 CS/ CC: MARIA DOLORES HENRY MD,AURELIANO Hillman MD Nov 04, 2016 08:59
[2016-11-04 13:34] VITALS: BP 140/65; RESP 20
--- NOTE | 2016-11-04 15:39 | CONS ---
Date/Time of Note Date/Time of Note DATE: 11/04/16 TIME: 15:37 Consultation Date/Type/Reason Admit Date/Time Date of Consultation: Nov 04, 2016 Type of Consultation: ID Reason for Consultation Antibiotic management Past Medical History Medical History: no pertinent history Social History Alcohol Use: occasionally Smoking Status: Never smoker Drug Use: marijuana Exam/Review of Systems Vital Signs Vitals Vital Signs Date Time Temp Pulse Resp B/P Pulse Ox O2 Delivery O2 Flow Rate FiO2 11/04/16 13:34 97.6 72 20 140/65 94 11/02/16 19:56 Room Air 11/01/16 21:16 2.0 Intake and Output 11/03/16 11/03/16 11/04/16 15:00 23:00 07:00 Intake Total 100 ml 1300 ml 900 ml Output Total 950 ml 1200 ml Balance 100 ml 350 ml -300 ml Results Result Diagram: 11/04/16 0457 11/04/16 0457 Results 24 hrs Laboratory Tests Test 11/03/16 17:53 11/03/16 20:52 11/04/16 04:57 11/04/16 08:13 Bedside Glucose 125 153 141 White Blood Count 14.7 H Red Blood Count 5.15 Hemoglobin 14.2 Hematocrit 43.9 Mean Corpuscular Volume 85.2 Mean Corpuscular Hemoglobin 27.6 L Mean Corpuscular Hemoglobin Concent 32.3 Red Cell Distribution Width 14.0 Platelet Count 347 Mean Platelet Volume 10.8 H Neutrophils % 55.7 Lymphocytes % 20.2 Monocytes % 11.2 H Eosinophils % 5.2 Basophils % 0.7 Nucleated Red Blood Cells % 0.0 Neutrophils # 8.2 H Lymphocytes # 3.0 H Monocytes # 1.7 H Eosinophils # 0.8 H Basophils # 0.1 Nucleated Red Blood Cells # 0.0 Sodium Level 136 Potassium Level 3.9 Chloride Level 100 Carbon Dioxide Level 28 Anion Gap 12 Blood Urea Nitrogen 10 Creatinine 0.95 Glucose Level 147 Calcium Level 9.1 Test 11/04/16 12:09 Bedside Glucose 212 Medications Medications Current Medications Hydromorphone HCl (Dilaudid) 1 mg Q4 PRN IV PAIN LEVEL 6-10 Last administered on 11/03/16t 22:58; Admin Dose 1 MG; Start 10/28/16 at 22:30 Acetaminophen/ Hydrocodone Bitart ([place] (5/325)) 1 tab Q6H PRN PO PAIN LEVEL 6 -10 Last administered on 11/04/16 05:37; Admin Dose 1 TAB; Start 10/28/16 at 22: 30 Acetaminophen/ Hydrocodone Bitart ([place] ()) 1 tab Q6H PRN PO PAIN; Start 10/28/16 at 22:30 Acetaminophen (Tylenol Tab) 650 mg Q6H PRN PO PAIN AND OR ELEVATED TEMP; Start 10/28/16 at 22:30 Ondansetron HCl 4 mg 4 mg Q6H PRN IV NAUSEA AND/OR VOMITING; Start 10/28/16 at 22:30 Piperacillin Sod/ Tazobactam Sod (Zosyn 3.375gm/ 100 ml (Pmx)) 100 ml @ 200 mls /hr Q6 IVPB Last administered on 11/04/16 12:10; Admin Dose 200 MLS/HR; Start 10/29/16 at 00:00 Miscellaneous Information 1 ea NOTE XX ; Start 10/28/16 at 23:30 Glucose (Glutose) 15 gm Q15M PRN PO DECREASED GLUCOSE; Start 10/28/16 at 23:30 Glucose (Glutose) 22.5 gm Q15M PRN PO DECREASED GLUCOSE; Start 10/28/16 at 23:30 Dextrose (D50w Syringe) 25 ml Q15M PRN IV DECREASED GLUCOSE; Start 10/28/16 at 23:30 Dextrose (D50w Syringe) 50 ml Q15M PRN IV DECREASED GLUCOSE; Start 10/28/16 at 23:30 Glucagon (Glucagen) 1 mg Q15M PRN IM DECREASED GLUCOSE; Start 10/28/16 at 23:30 Glucose (Glutose) 15 gm Q15M PRN BUCCAL DECREASED GLUCOSE; Start 10/28/16 at 23: 30 Insulin Glargine (Lantus) 27 unit DAILY@08 SC Last administered on 11/04/16 08 :29; Admin Dose 27 UNIT; Start 10/30/16 at 08:00 Diagnostic Test (Pha) (Accu-Chek) 1 ea 02 XX ; Start 10/30/16 at 02:00 Sodium Hypochlorite (Dakin'S (Dilute 1/40%)) 1 applic BID IRR Last administered on 11/04/16 08:16; Admin Dose 1 APPLIC; Start 10/30/16 at 13:30 Famotidine (Pepcid) 20 mg BID PO Last administered on 11/04/16 08:15; Admin Dose 20 MG; Start 11/01/16 at 21:00 Docusate Sodium (Colace) 100 mg DAILY PRN PO CONSTIPATION Last administered on 11/02/16 18:09; Admin Dose 100 MG; Start 11/01/16 at 11:00 ZACARIAS GARCIA MD Nov 04, 2016 15:38
[2016-11-04] MEDS ORDERED: IOHEXOL 300MG/ML 150 ML BTL ONE (16:18)
[2016-11-04] MEDS ORDERED: SOD CHLORIDE 0.9% 100 ML ONE (16:18)
[2016-11-04] MEDS: HYDROmorphONE 1 MG/ML SYG IV PRN ×2 (17:01→23:51)
--- NOTE | 2016-11-04 17:22 | PN ---
Date/Time of Note Date/Time of Note DATE: 11/04/16 TIME: 17:21 Assessment/Plan VTE Prophylaxis VTE Prophylaxis Intervention: SCD's Lines/Catheters IV Catheter Type (from Nrs): Saline Lock Urinary Cath still in place: No Assessment/Plan Chief Complaint/Hosp Course Patient is a 36-year-old male with morbid obesity and poorly controlled diabetes mellitus who presents with sepsis secondary to necrotizing soft tissue infection of his right thigh gluteus and perineum. Necrotizing soft tissue infection of the right thigh, gluteus, perineum Sepsis Right inguinal pain Diabetes mellitus Tachycardia Leukocytosis Plan -Tended to transfer to tertiary care center, however [facility] refused but will speak with surgeon, general surgery aware and will speak to surgeon at [facility] -Continue antibiotics, infectious disease consulted -Continue insulin -Continue labs -Appreciate general surgery recommendations Problems: Subjective 24 Hr Interval Summary Free Text/Dictation no acute complaints Exam/Review of Systems Vital Signs Vitals Vital Signs Date Time Temp Pulse Resp B/P Pulse Ox O2 Delivery O2 Flow Rate FiO2 11/04/16 13:34 97.6 72 20 140/65 94 11/02/16 19:56 Room Air 11/01/16 21:16 2.0 Intake and Output 11/03/16 11/03/16 11/04/16 15:00 23:00 07:00 Intake Total 100 ml 1300 ml 900 ml Output Total 950 ml 1200 ml Balance 100 ml 350 ml -300 ml Exam Physical exam General: Patient is laying in bed and answers questions appropriately Mentation: Patient is alert and oriented 4, Head: Normocephalic atraumatic Eyes: EOMI, pupils reactive to light Neck: Supple, nontender, midline Respiratory: Clear to auscultation bilaterally Cardiovascular: regular rate, no obvious murmurs Gastrointestinal: non-tender to palpation, bowel sounds heard. Neurological: Moves all extremities spontaneously Skin: extensive surgical excision in the R groin area.bandaged, CDI Results Result Diagram: 11/04/16 0457 11/04/16 0457 Results 24 hrs Laboratory Tests Test 11/03/16 17:53 11/03/16 20:52 11/04/16 04:57 11/04/16 08:13 Bedside Glucose 125 153 141 White Blood Count 14.7 H Red Blood Count 5.15 Hemoglobin 14.2 Hematocrit 43.9 Mean Corpuscular Volume 85.2 Mean Corpuscular Hemoglobin 27.6 L Mean Corpuscular Hemoglobin Concent 32.3 Red Cell Distribution Width 14.0 Platelet Count 347 Mean Platelet Volume 10.8 H Neutrophils % 55.7 Lymphocytes % 20.2 Monocytes % 11.2 H Eosinophils % 5.2 Basophils % 0.7 Nucleated Red Blood Cells % 0.0 Neutrophils # 8.2 H Lymphocytes # 3.0 H Monocytes # 1.7 H Eosinophils # 0.8 H Basophils # 0.1 Nucleated Red Blood Cells # 0.0 Sodium Level 136 Potassium Level 3.9 Chloride Level 100 Carbon Dioxide Level 28 Anion Gap 12 Blood Urea Nitrogen 10 Creatinine 0.95 Glucose Level 147 Calcium Level 9.1 Test 11/04/16 12:09 Bedside Glucose 212 Medications Medications Current Medications Hydromorphone HCl (Dilaudid) 1 mg Q4 PRN IV PAIN LEVEL 6-10 Last administered on 11/04/16 17:01; Admin Dose 1 MG; Start 10/28/16 at 22:30 Acetaminophen/ Hydrocodone Bitart ([place] (5/325)) 1 tab Q6H PRN PO PAIN LEVEL 6 -10 Last administered on 11/04/16 05:37; Admin Dose 1 TAB; Start 10/28/16 at 22: 30 Acetaminophen/ Hydrocodone Bitart ([place] (10/325)) 1 tab Q6H PRN PO PAIN; Start 10/28/16 at 22:30 Acetaminophen (Tylenol Tab) 650 mg Q6H PRN PO PAIN AND OR ELEVATED TEMP; Start 10/28/16 at 22:30 Ondansetron HCl 4 mg 4 mg Q6H PRN IV NAUSEA AND/OR VOMITING; Start 10/28/16 at 22:30 Piperacillin Sod/ Tazobactam Sod (Zosyn 3.375gm/ 100 ml (Pmx)) 100 ml @ 200 mls /hr Q6 IVPB Last administered on 11/04/16 12:10; Admin Dose 200 MLS/HR; Start 10/29/16 at 00:00 Miscellaneous Information 1 ea NOTE XX ; Start 10/28/16 at 23:30 Glucose (Glutose) 15 gm Q15M PRN PO DECREASED GLUCOSE; Start 10/28/16 at 23:30 Glucose (Glutose) 22.5 gm Q15M PRN PO DECREASED GLUCOSE; Start 8/7/17 at 23:30 Dextrose (D50w Syringe) 25 ml Q15M PRN IV DECREASED GLUCOSE; Start 10/28/16 at 23:30 Dextrose (D50w Syringe) 50 ml Q15M PRN IV DECREASED GLUCOSE; Start 10/28/16 at 23:30 Glucagon (Glucagen) 1 mg Q15M PRN IM DECREASED GLUCOSE; Start 10/28/16 at 23:30 Glucose (Glutose) 15 gm Q15M PRN BUCCAL DECREASED GLUCOSE; Start 10/28/16 at 23: 30 Insulin Glargine (Lantus) 27 unit DAILY@08 SC Last administered on 11/04/16 08 :29; Admin Dose 27 UNIT; Start 10/30/16 at 08:00 Diagnostic Test (Pha) (Accu-Chek) 1 ea 02 XX ; Start 10/30/16 at 02:00 Sodium Hypochlorite (Dakin'S (Dilute 1/40%)) 1 applic BID IRR Last administered on 11/04/16 08:16; Admin Dose 1 APPLIC; Start 10/30/16 at 13:30 Famotidine (Pepcid) 20 mg BID PO Last administered on 11/04/16 08:15; Admin Dose 20 MG; Start 11/01/16 at 21:00 Docusate Sodium (Colace) 100 mg DAILY PRN PO CONSTIPATION Last administered on 11/02/16 18:09; Admin Dose 100 MG; Start 11/01/16 at 11:00 GRETTA MARTIN Nov 04, 2016 17:22
--- NOTE | 2016-11-04 17:30 | RADRPT ---
PROCEDURE: CT Pelvis and bilateral lower extremities to the knees with contrast. CLINICAL INDICATION: Infection. Evaluation is performed to assess for the extent of infection. TECHNIQUE: CT scan of the pelvis and lower extremities to the knees after the uneventful administra tion of 120 cc of Omnipaque-300. Coronal and sagittal reformatted images were obtained from the axia l source images. The total exam CTDI = 13.64 mGy and the DLP = 1013.74 mGy-cm. Evaluation is partia lly limited due to the patient's body habitus and associated quantum mottle artifact. One or more of the following dose reduction techniques were used: - Automated exposure control. - Adjustment of the mA and/or kV according to patient size. - Use of iterative reconstruction technique. COMPARISON: CT scan of the abdomen and pelvis dated 11/03/2016 and 10/28/2016. FINDINGS: Genitourinary system: The urinary bladder is partially contracted, but otherwise unremarkable. The prostate gland and seminal vesicles are grossly unremarkable. Gastrointestinal system: There is sigmoid diverticulosis without evidence of diverticulitis. The r emaining portions of bowel are unremarkable. The appendix is in the right lower quadrant and is unre markable. Peritoneum, lymphatics, and cardiovascular system: There is no free intraperitoneal air or free flu id. There are prominent bilateral iliac chain nodes with a dominant left external iliac node measuri ng 7 mm in short axis. There is bilateral inguinal adenopathy. There is a moderate fat containing u mbilical hernia. The pelvic vasculature is patent. Musculoskeletal system and soft tissues: There are no concerning osseous lesions. There is inflamma tory change and gas within the right perineum with gas extending into the medial right gluteal subcu taneous fat. There is a small amount of fluid within the subcutaneous tissues, but no focal drainabl e collection. There is also skin thickening of the medial right thigh with underlying mild inflammat ory change extending to the level of the mid distal femoral diaphysis. IMPRESSION: 1. 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 No focal drainable collection. 2. Bilateral inguinal adenopathy and prominent bilateral iliac chain lymph nodes, likely reactive i n nature. 3. Skin thickening and inflammatory change in the subcutaneous fat of the medial right thigh extend ing to the level of the mid distal femoral diaphysis. 4. Sigmoid diverticulosis. 5. Moderate fat containing umbilical hernia. RPTAT: HLBP .Esa Berry MD, Date Time Electronically viewed and signed by .Esa Berry MD, on 11/04/2016 17:30 .P/
[2016-11-04 21:02] VITALS: BP 122/72; RESP 18
[2016-11-05] MEDS: PIPER-TAZO 3.375 GM IV (PMX) 100 ML IVPB SCH ×3 (00:12→11:21)
[2016-11-05 02:00] VITALS: BP 125/77; RESP 18
[2016-11-05] MEDS: ACCU-CHEK XX SCH (02:00)
[2016-11-05] MEDS: HYDROCODONE/APAP (5/325) TAB PO PRN ×2 (02:25→20:09)
--- NOTE | 2016-11-05 04:22 | CONS ---
DATE OF ADMISSION: 10/28/2016 DATE OF CONSULTATION: 11/04/2016 REASON FOR CONSULTATION: Antibiotic management. HISTORY OF PRESENT ILLNESS: Emre Sewell is a 36-year-old, morbidly obese, male, who was brought in with what appeared to be necrotizing fasciitis on 10/28/2016. Necrotizing soft tissue infection of the right thigh, groin and buttocks. He was taken to surgery immediately by Dr. Oj Jeong for the necrotizing soft tissue infection. He had excisional debridement of necrotizing soft tissue of the right thigh, approximately 45 cm, and excisional debridement soft tissue of right buttocks and groin, approximately 72 cm. According to the history, the patient came to the emergency room complaining of right inner thigh and perineal pain that started 4 days prior to admission. He also felt that he had fever and chills. Four days ago he noticed a little opening of the skin, which occurred in the inner thigh, and he started to notice some purulent discharge as well as swelling. He is sexually active and has 1 partner. Denies any penile discharge or dysuria. The patient's CAT scan was reflective of subcutaneous emphysema, likely indicating Dian's gangrene, but the area did not affect the scrotum. Patient was taken to the OR, was placed on vancomycin and Zosyn. HOSPITAL COURSE: His wound grew out group B staph, strep A agalactiae and coagulase-negative staph. His blood cultures otherwise were negative. Anaerobic cultures and urine cultures are negative. The wound at this point is open and quite clean. A CT scan of the abdomen and pelvis was done on 11/03/2016, necrotizing soft tissue infection incompletely imaged. Quantity of gas has mildly decreased. Negative for evidence of extension into the true pelvis. True gas in urinary bladder is likely from recent catheterization. This patient was seen by Dr. Jeong today, postop day number 7. Culture shows group B strep and coagulase-negative staph. He wanted to repeat a CT scan. Actually repeat CT scan shows improvement in the gluteal soft tissue gas. Even though wound seems to be granulating, he likely has deeper soft tissue necrotizing infection. This will require deeper wide local debridement. I would definitely recommend transfer to a tertiary care institution while the patient is still stable so he may undergo a wide excisional debridement and wound care at a higher level of care, which will have the resources to deal with this. PAST MEDICAL HISTORY: Operations as outlined. FAMILY HISTORY: Noncontributory. SOCIAL HISTORY: He does not smoke, drink, or abuse drugs. ALLERGIES: NONE TO PENICILLIN, SULFA, OR FOODS. MEDICATION: Per chart. REVIEW OF SYSTEMS: As per HPI. PHYSICAL EXAMINATION: GENERAL: Patient is a morbidly obese male who is alert, responsive, oriented x3, pleasant, in no acute distress. VITAL SIGNS: Stable. He is afebrile. SKIN: Without generalized rash. HEENT: Within normal limits. NECK: Supple. Lymph nodes nonpalpable. CHEST: Decreased breath sounds at the bases. HEART: Without murmur or gallop. ABDOMEN: Soft, nontender, without organo-splenomegaly or masses. EXTREMITIES: Without cyanosis, clubbing, or edema. RECTAL: The rectal area shows 2 areas of incisions with minimal drainage. The mucous membranes are moist. No obvious pus. IMPRESSION AND PLAN: The patient is currently on Zosyn. The coagulase negative staph is sensitive to most everything. The patient can be placed actually on cefotaxime or ceftriaxone, which we are going to do. He could also be put on Cipro actually. The group A strep should be treated with penicillin like drugs, though it is sensitive to Cipro as well. I will dictate my findings to the hospitalist and Dr. Jeong. He can be on ceftriaxone currently and then switched over to Cipro to go home or to tertiary care. Dictated By: David Balderas MD JD/sera/joe /Document#: [id number]
[2016-11-05 06:03] LABS: BASOPHIL # 0.1 10^3/ul (0.0-0.1); BASOPHILS % 0.6 % (0.0-2.0); EOSINOPHILS # 0.7 10^3/ul (0.0-0.5); EOSINOPHILS % 5.2 % (0.0-7.0); HEMOGLOBIN 13.9 g/dl (14.0-18.0); LYMPHOCYTES # 2.5 10^3/ul (0.8-2.9); LYMPHOCYTES % 18.8 % (15.0-51.0); MEAN CORPUSCULAR HEMOGLOBIN 27.6 pg (29.0-33.0); MEAN CORPUSCULAR HGB CONC 32.3 g/dl (32.0-37.0); MEAN CORPUSCULAR VOLUME 85.3 fl (82.0-101.0); MEAN PLATELET VOLUME 10.8 fl (7.4-10.4); MONOCYTE # 1.3 10^3/ul (0.3-0.9); MONOCYTES % 10.1 % (0.0-11.0); NEUTROPHILS % 61.5 % (39.0-77.0); PLATELET COUNT 351 10^3/UL (140-415); RED BLOOD COUNT 5.04 10^6/ul (4.70-6.10); RED CELL DISTRIBUTION WIDTH 13.9 % (11.5-14.5); WHITE BLOOD COUNT 13.3 10^3/ul (4.8-10.8)
[2016-11-05 06:44] LABS: CALCIUM 9.1 mg/dl (8.4-10.2); CREATININE 0.89 mg/dl (0.61-1.24); POTASSIUM 3.8 mmol/L (3.5-5.1)
[2016-11-05 07:31] VITALS: BP 126/71; RESP 20
[2016-11-05] MEDS: INSULIN ASPART [NOVOLOG] 3 ML PEN SC SCH ×7 (08:15→20:13)
[2016-11-05] MEDS: INSULIN GLARGINE [LANtus] 3 ML PEN SC SCH (08:18)
[2016-11-05] MEDS: FAMOTIDINE 20 MG TAB PO SCH ×2 (09:00→20:09)
[2016-11-05] MEDS: SODIUM HYPOCHLORITE 1/40% 1L IRRIG IRR SCH ×2 (09:02→20:10)
--- NOTE | 2016-11-05 09:43 | PN ---
Date/Time of Note Date/Time of Note DATE: 11/05/16 TIME: 09:40 Assessment/Plan Lines/Catheters IV Catheter Type (from Nrsg): Saline Lock Fagan in Place (from Nrsg): No Assessment/Plan Assessment/Plan Morbidly obese 36-year-old male with sepsis secondary to necrotizing soft tissue infection of the right thigh, gluteus and perineum s/p debridement POD#8 * Continue antibiotics * Cultures show methicillin sensitive staph aureus. * Continue local wound care. Wound care nurse eval and recommendations appreciated. * Physical therapy * Repeat CT scan from pelvis down to the knees reviewed with radiologist Dr. Zapien. There is actually significant improvement in soft tissue gas and inflammation from the patient's initial CT. What remains is likely postoperative changes. Patient's white blood cell count is also down to 13. Given all of the above and his clinical improvement there is no indication for further debridement at this time. I would continue with local wound care. Discharge planning can be done for outpatient follow-up at a tertiary wound care center, along with possible home wound care nurses. Discussed with primary care team and case management Subjective 24 Hr Interval Summary Doing well. Denies complaints. Afebrile. Exam/Review of Systems Vital Signs Vitals Vital Signs Date Time Temp Pulse Resp B/P Pulse Ox O2 Delivery O2 Flow Rate FiO2 11/05/16 07:31 97.7 97 20 126/71 93 11/02/16 19:56 Room Air 11/01/16 21:16 2.0 Intake and Output 11/04/16 11/04/16 11/05/16 15:00 23:00 07:00 Intake Total 100 ml 1300 ml 900 ml Output Total 800 ml Balance 100 ml 500 ml 900 ml Exam Free Text/Dictation GENERAL: Morbidly obese, awake, alert, oriented x 3. No acute distress. CARDIOVASCULAR: S1S2, regular rate and rhythm. No murmurs appreciated. RESPIRATORY: Clear to auscultation bilaterally. ABDOMEN: Obese, soft, bowel sounds present, nondistended, nontender to palpation. Reducible umbilical hernia palpated. WOUNDS: Clean and without drainage. Tissue of both wounds looks viable without necrosis and with healthy granulation tissue. No crepitus Results Result Diagram: 11/05/16 0529 11/05/16 0529 AURELIANO RANDALL MD Nov 05, 2016 09:43
[2016-11-05] MEDS: CIPROFLOXACIN 400MG/D5W 200 ML IVPB SCH ×2 (13:16→22:26)
[2016-11-05 13:26] VITALS: BP 143/83; RESP 20
[2016-11-05] MEDS: HYDROmorphONE 1 MG/ML SYG IV PRN ×2 (15:25→21:43)
--- NOTE | 2016-11-05 17:53 | PN ---
Date/Time of Note Date/Time of Note DATE: 11/05/16 TIME: 17:51 Assessment/Plan VTE Prophylaxis VTE Prophylaxis Intervention: ambulation Lines/Catheters IV Catheter Type (from Nrs): Saline Lock Urinary Cath still in place: No Assessment/Plan Chief Complaint/Hosp Course Patient is a 36-year-old male with morbid obesity and poorly controlled diabetes mellitus who presents with sepsis secondary to necrotizing soft tissue infection of his right thigh gluteus and perineum. Necrotizing soft tissue infection of the right thigh, gluteus, perineum Sepsis Right inguinal pain Diabetes mellitus Tachycardia Leukocytosis Plan -no need to transfer to tertiary [facility] upon repeat eval of CT scan per gen surg. Will plan with for outpatient wound care follow up at [facility]. -Continue antibiotics, infectious disease recommendations appreciated. will de- escalate to IV cipro today and oral cirpo tomorrow in anticipation of dc soon. -Continue insulin -Continue labs -Appreciate general surgery recommendations Problems: Subjective 24 Hr Interval Summary Free Text/Dictation patient walking around room, feeling well Exam/Review of Systems Vital Signs Vitals Vital Signs Date Time Temp Pulse Resp B/P Pulse Ox O2 Delivery O2 Flow Rate FiO2 11/05/16 13:26 98.4 92 20 143/83 94 11/02/16 19:56 Room Air 11/01/16 21:16 2.0 Intake and Output 11/04/16 11/04/16 11/05/16 15:00 23:00 07:00 Intake Total 100 ml 1300 ml 900 ml Output Total 800 ml Balance 100 ml 500 ml 900 ml Exam Physical exam General: Patient is laying in bed and answers questions appropriately Mentation: Patient is alert and oriented 4, Head: Normocephalic atraumatic Eyes: EOMI, pupils reactive to light Neck: Supple, nontender, midline Respiratory: Clear to auscultation bilaterally Cardiovascular: regular rate, no obvious murmurs Gastrointestinal: non-tender to palpation, bowel sounds heard. Neurological: Moves all extremities spontaneously Skin: extensive surgical excision in the R groin area.bandaged, CDI Results Result Diagram: 11/05/16 0529 11/05/16 0529 Results 24 hrs Laboratory Tests Test 11/04/16 20:18 11/05/16 05:29 11/05/16 08:09 11/05/16 12:12 Bedside Glucose 177 133 107 White Blood Count 13.3 H Red Blood Count 5.04 Hemoglobin 13.9 L Hematocrit 43.0 Mean Corpuscular Volume 85.3 Mean Corpuscular Hemoglobin 27.6 L Mean Corpuscular Hemoglobin Concent 32.3 Red Cell Distribution Width 13.9 Platelet Count 351 Mean Platelet Volume 10.8 H Neutrophils % 61.5 Lymphocytes % 18.8 Monocytes % 10.1 Eosinophils % 5.2 Basophils % 0.6 Nucleated Red Blood Cells % 0.0 Neutrophils # (Manual) 8.2 H Lymphocytes # 2.5 Monocytes # 1.3 H Eosinophils # 0.7 H Basophils # 0.1 Nucleated Red Blood Cells # 0.0 Sodium Level 139 Potassium Level 3.8 Chloride Level 102 Carbon Dioxide Level 28 Anion Gap 13 Blood Urea Nitrogen 9 Creatinine 0.89 Glucose Level 123 Calcium Level 9.1 Test 11/05/16 17:16 Bedside Glucose 114 Medications Medications Current Medications Hydromorphone HCl (Dilaudid) 1 mg Q4 PRN IV PAIN LEVEL 6-10 Last administered on 11/05/16 15:25; Admin Dose 1 MG; Start 10/28/16 at 22:30 Acetaminophen/ Hydrocodone Bitart ([place] (5/325)) 1 tab Q6H PRN PO PAIN LEVEL 6 -10 Last administered on 11/05/16 02:25; Admin Dose 1 TAB; Start 10/28/16 at 22: 30 Acetaminophen/ Hydrocodone Bitart ([place] (10/325)) 1 tab Q6H PRN PO PAIN; Start 10/28/16 at 22:30 Acetaminophen (Tylenol Tab) 650 mg Q6H PRN PO PAIN AND OR ELEVATED TEMP; Start 10/28/16 at 22:30 Ondansetron HCl (Zofran Inj) 4 mg Q6H PRN IV NAUSEA AND/OR VOMITING; Start 10/28 at 22:30 Miscellaneous Information 1 ea NOTE XX ; Start 10/28/16 at 23:30 Glucose (Glutose) 15 gm Q15M PRN PO DECREASED GLUCOSE; Start 10/28/16 at 23:30 Glucose (Glutose) 22.5 gm Q15M PRN PO DECREASED GLUCOSE; Start 10/28/16 at 23:30 Dextrose (D50w Syringe) 25 ml Q15M PRN IV DECREASED GLUCOSE; Start 10/28/16 at 23:30 Dextrose (D50w Syringe) 50 ml Q15M PRN IV DECREASED GLUCOSE; Start 10/28/16 at 23:30 Glucagon (Glucagen) 1 mg Q15M PRN IM DECREASED GLUCOSE; Start 10/28/16 at 23:30 Glucose (Glutose) 15 gm Q15M PRN BUCCAL DECREASED GLUCOSE; Start 10/28/16 at 23: 30 Insulin Glargine (Lantus) 27 unit DAILY@08 SC Last administered on 11/05/16 08 :18; Admin Dose 27 UNIT; Start 10/30/16 at 08:00 Diagnostic Test (Pha) (Accu-Chek) 1 ea 02 XX ; Start 10/30/16 at 02:00 Sodium Hypochlorite (Dakin'S (Dilute 1/40%)) 1 applic BID IRR Last administered on 11/05/16 09:02; Admin Dose 1 APPLIC; Start 10/30/16 at 13:30 Famotidine (Pepcid) 20 mg BID PO Last administered on 11/04/16 20:19; Admin Dose 20 MG; Start 11/01/16 at 21:00 Docusate Sodium 100 mg 100 mg DAILY PRN PO CONSTIPATION Last administered on 18:09; Admin Dose 100 MG; Start 11/01/16 at 11:00 Ciprofloxacin/ Dextrose (Cipro Ivpb) 200 ml @ 200 mls/hr Q12 IVPB Last administered on 11/05/16 13:16; Admin Dose 200 MLS/HR; Start 11/05/16 at 12:30 GRETTA MARTIN Nov 05, 2016 17:53
[2016-11-05 20:00] VITALS: BP 129/67; PULSE 68; RESP 16
[2016-11-06] VITALS (9 sets, daily range): BP systolic 118–161; BP diastolic 72–82; RESP 18–20
[2016-11-06] MEDS: ACCU-CHEK XX SCH (02:00)
[2016-11-06] MEDS: HYDROmorphONE 1 MG/ML SYG IV PRN ×2 (02:09→15:28)
--- NOTE | 2016-11-06 05:44 | PN ---
DATE: SUBJECTIVE DATA: No acute changes overnight per report. The patient is alert, looks comfortable. Denies pain and discomfort. No fevers. LABORATORY AND DIAGNOSTIC DATA: WBC 13.3, platelets 351, no shift, no bands. BUN 9, creatinine 0.89. MICROBIOLOGY: Wound culture on admission grew strep agalactiae and coag-negative Staph species. No anaerobe, blood cultures remain negative. ANTIMICROBIALS: The patient is on IV ciprofloxacin. PHYSICAL EXAMINATION: GENERAL: This is an obese, well-developed middle-aged man who is awake, in no distress. HEENT: Head atraumatic, normocephalic. Sclerae anicteric. Buccal mucosa pink. NECK: Supple. CHEST: Rise symmetrical. Breath sounds clear. HEART: S1, S2. ABDOMEN: Soft. Bowel sounds present. EXTREMITIES: Right thigh wound dressing intact. ASSESSMENT: 1. Resolving sepsis. 2. Necrotizing soft-tissue infection of the right thigh gluteus and perineum, status post debridement on 10/28/2016, cultures growing coag-negative Staph species and strep agalactiae, both susceptible to ciprofloxacin. 3. Obesity. 4. Diabetes. PLAN: The patient remains stable. Surgery follows. Continue present care. Antibiotics. Dictated By: Lynnette Whitley NP /sera/rafa /Document#: [id number]
[2016-11-06 06:08] LABS: BASOPHIL # 0.1 10^3/ul (0.0-0.1); BASOPHILS % 0.8 % (0.0-2.0); EOSINOPHILS # 0.7 10^3/ul (0.0-0.5); EOSINOPHILS % 5.7 % (0.0-7.0); HEMATOCRIT 43.1 % (42.0-52.0); LYMPHOCYTES # 2.8 10^3/ul (0.8-2.9); MEAN CORPUSCULAR HEMOGLOBIN 27.9 pg (29.0-33.0); MEAN CORPUSCULAR HGB CONC 32.5 g/dl (32.0-37.0); MEAN PLATELET VOLUME 10.5 fl (7.4-10.4); MONOCYTE # 1.1 10^3/ul (0.3-0.9); MONOCYTES % 9.2 % (0.0-11.0); NEUTROPHILS % 57.8 % (39.0-77.0); PLATELET COUNT 348 10^3/UL (140-415); RED BLOOD COUNT 5.01 10^6/ul (4.70-6.10); WHITE BLOOD COUNT 11.8 10^3/ul (4.8-10.8)
[2016-11-06 06:31] LABS: ALBUMIN 3.5 g/dl (3.3-4.9); ALBUMIN/GLOBULIN RATIO 0.79; BILIRUBIN,INDIRECT 0.3 mg/dl (0-1.1); BILIRUBIN,TOTAL 0.3 mg/dl (0.2-1.3); CALCIUM 9.2 mg/dl (8.4-10.2); CREATININE 0.92 mg/dl (0.61-1.24); POTASSIUM 4.5 mmol/L (3.5-5.1); TOTAL PROTEIN 7.9 g/dl (6.1-8.1)
[2016-11-06] MEDS: INSULIN ASPART [NOVOLOG] 3 ML PEN SC SCH ×6 (08:00→17:26)
[2016-11-06] MEDS: INSULIN GLARGINE [LANtus] 3 ML PEN SC SCH (08:08)
[2016-11-06] MEDS: CIPROFLOXACIN 400MG/D5W 200 ML IVPB SCH (09:33)
[2016-11-06] MEDS: FAMOTIDINE 20 MG TAB PO SCH (09:33)
[2016-11-06] MEDS: HYDROCODONE/APAP (5/325) TAB PO PRN (09:36)
[2016-11-06] MEDS: SODIUM HYPOCHLORITE 1/40% 1L IRRIG IRR SCH (09:37)
[2016-11-06] MEDS: CIPROFLOXACIN 250 MG TAB PO SCH ×2 (11:37→18:26)
[2016-11-06] MEDS ORDERED: METF1000 PO (11:57)
[2016-11-06] MEDS ORDERED: SITA100T8 PO (11:57)
[2016-11-06] MEDS ORDERED: EMPA10TA PO (11:57)
[2016-11-06] MEDS ORDERED: HYDR-906 PO (11:57)
[2016-11-06] MEDS ORDERED: CIPR750T3 PO (11:59)
--- NOTE | 2016-11-06 12:51 | PN ---
Date/Time of Note Date/Time of Note DATE: 11/06/16 TIME: 12:50 Assessment/Plan Lines/Catheters IV Catheter Type (from Nrsg): Saline Lock [place] in Place (from Nrsg): No Assessment/Plan Assessment/Plan Morbidly obese 36-year-old male with sepsis secondary to necrotizing soft tissue infection of the right thigh, gluteus and perineum s/p debridement POD#9 * Cultures show methicillin sensitive staph aureus. * Continue local wound care. Wound care nurse eval and recommendations appreciated. * Physical therapy * Repeat CT scan from pelvis down to the knees reviewed with radiologist Dr. Zapien. There is actually significant improvement in soft tissue gas and inflammation from the patient's initial CT. What remains is likely postoperative changes. Patient's white blood cell count is also down to 11. Given all of the above and his clinical improvement there is no indication for further debridement at this time. I would continue with local wound care. * Surgically stable for discharge with outpatient follow-up at a tertiary wound care center, along with possible home wound care nurses. Discussed with primary care team and case management Subjective 24 Hr Interval Summary Doing well. No complaints. Afebrile. Exam/Review of Systems Vital Signs Vitals Vital Signs Date Time Temp Pulse Resp B/P Pulse Ox O2 Delivery O2 Flow Rate FiO2 11/06/16 07:45 97.7 79 18 129/78 92 11/05/16 20:00 Room Air Intake and Output 11/05/16 11/05/16 11/06/16 15:00 23:00 07:00 Intake Total 400 ml 1080 ml 1000 ml Output Total 0 ml Balance 400 ml 1080 ml 1000 ml Exam Free Text/Dictation GENERAL: Morbidly obese, awake, alert, oriented x 3. No acute distress. CARDIOVASCULAR: S1S2, regular rate and rhythm. No murmurs appreciated. RESPIRATORY: Clear to auscultation bilaterally. ABDOMEN: Obese, soft, bowel sounds present, nondistended, nontender to palpation. Reducible umbilical hernia palpated. WOUNDS: Clean and without drainage. Tissue of both wounds looks viable without necrosis and with healthy granulation tissue. No crepitus Results Result Diagram: 11/06/16 0530 11/06/16 0530 AURELIANO RANDALL MD Nov 06, 2016 12:51
--- NOTE | 2016-11-06 14:03 | PDOCDIS ---
Discharge Instructions CONDITION Patient Condition: Stable HOME CARE INSTRUCTIONS: Special Diet: carb control ACTIVITY: Bathing Restrictions: Sponge Bath FOLLOW UP/APPOINTMENTS Follow-up Plan 1. Patient is to follow up with his primary care provider that his insurance provides as soon as possible. 2. Patient needs to follow up with Dr. Jeong within 1-2 weeks 3. Patient needs to take all medications as prescribed. 4. Patient needs to follow up with home health and tertiary care wound clinic. GRETTA MARTIN Nov 06, 2016 14:03
--- NOTE | 2016-11-06 14:07 | DS ---
Date/Time of Note Date/Time of Note DATE: 11/06/16 TIME: 14:06 Discharge Summary Admission/Discharge Info Admit Date/Time Oct 29, 2016 at 00:28 Discharge Date/Time Patient Condition: Stable Hx of Present Illness Chief complaint: Inner thigh pain This is a 36-year-old male patient with no significant past medical history presents to the ED complaining of right inner thigh and perineal pain that started 4 days ago. Reports that he also felt like he had tactile fevers as well as chills. States that 4 days ago, he noticed that a little opening of his skin occurred in his inner thigh and he started to notice some purulent discharge. States that he started to notice some swelling. States that he is sexually active. Reports that he has 1 sexual partner. Denies any penile discharge. Denies any dysuria, urgency, frequency, abdominal pain, nausea, vomiting, diarrhea. 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 The general surgeon was consulted by the ER. Patient was taken to the OR please see operative report for further details. Patient currently is doing well postop. He is producing dark concentrated urine which he states has been like this for approximately the last day and a half or so. He does state that he is thirsty. Allergies: NKDA Medications: See [facility] Hospital Course Patient is a 36-year-old morbidly obese male who presented to [facility] with right thigh abscess found to have necrotizing soft tissue infection of the right thigh, gluteus, and perineum and is status post debridement by general surgery. Patient did well after the surgery and the wound was left open to continue healing and draining. Patient had a repeat CT scan which general surgery saw significant improvement in patient's white count also significantly improved. Patient was seen by infectious disease and antibiotics were adjusted and patient will be sent home on an additional 10 day course of ciprofloxacin twice a day. Patient also was found to have new onset diabetes during this admission and although insulin was offered given his high A1c, patient opted for medical management for now and will follow up with his primary care provider. Patient will be discharged with a combination of diabetic medications including metformin, Januvia, jardiance, which was verified to be approved by his medical insurance per online formulary. If medications are not covered, patient understands that he will need to follow-up with his primary care provider as soon as possible anyway and will get medications adjusted. Patient knows to take his Cipro Floxin for the entire course and home health as well as outpatient follow-up at a tertiary care center for his complicated wound will be set up prior to discharge. Patient understands that he will need to make an appointment with Dr. Jeong and his primary care provider as soon as possible. Discharge diagnosis Necrotizing soft tissue infection of the right thigh, gluteus, perineum Dian's gangrene Sepsis, resolved Right inguinal pain Diabetes mellitus, new onset Tachycardia, resolved Leukocytosis, resolved Home Meds Active Scripts Ciprofloxacin Hcl* (Ciprofloxacin Hcl*) 750 Mg Tablet, 750 MG PO BID for 10 Days , #20 TAB Prov:GRETTA MARTIN 11/06/16 Hydrocodone/Acetaminophen ([place] 5-325 Tablet) 1 Each Tablet, 1 EACH PO Q6 for PAIN for 14 Days, #56 TAB Prov:GRETTA MARTIN 11/06/16 Sitagliptin* (Januvia*) 100 Mg Tablet, 100 MG PO DAILY for 30 Days, #30 TAB 2 Refills Prov:GRETTA MARTIN 11/06/16 Metformin Hcl* (Metformin Hcl*) 1,000 Mg Tablet, 1000 MG PO BID WITH MEALS for 30 Days, #60 TAB 2 Refills Prov:GRETTA MARTIN 11/06/16 Empagliflozin (Jardiance) 10 Mg Tablet, 10 MG PO DAILY for 30 Days, #30 TAB 2 Refills Prov:GRETTA MARTIN 11/06/16 Primary Care Provider Manolo Guerin MD Pending Labs Laboratory Tests Test 11/05/16 17:16 11/05/16 20:12 11/06/16 05:30 11/06/16 07:59 Bedside Glucose 114mg/dL (70-220) 131mg/dL (70-220) 132mg/dL (70-220) White Blood Count 11.810^3/ul (4.8-10.8) Red Blood Count 5.0110^6/ul (4.70-6.10) Hemoglobin 14.0g/dl (14.0-18.0) Hematocrit 43.1% (42.0-52.0) Mean Corpuscular Volume 86.0fl (82.0-101.0) Mean Corpuscular Hemoglobin 27.9pg (29.0-33.0) Mean Corpuscular Hemoglobin Concent 32.5g/dl (32.0-37.0) Red Cell Distribution Width 14.0% (11.5-14.5) Platelet Count 71759^3/UL (140-415) Mean Platelet Volume 10.5fl (7.4-10.4) Neutrophils % 57.8% (39.0-77.0) Lymphocytes % 24.0% (15.0-51.0) Monocytes % 9.2% (0.0-11.0) Eosinophils % 5.7% (0.0-7.0) Basophils % 0.8% (0.0-2.0) Nucleated Red Blood Cells % 0.0/100WBC (0.0-0.0) Neutrophils # (Manual) 6.810^3/ul (1.7-7.5) Lymphocytes # 2.810^3/ul (0.8-2.9) Monocytes # 1.110^3/ul (0.3-0.9) Eosinophils # 0.710^3/ul (0.0-0.5) Basophils # 0.110^3/ul (0.0-0.1) Nucleated Red Blood Cells # 0.010^3/ul (0.0-0.0) Sodium Level 141mmol/L (135-144) Potassium Level 4.5mmol/L (3.5-5.1) Chloride Level 98mmol/L (97-110) Carbon Dioxide Level 29mmol/L (21-31) Anion Gap 19 (8-16) Blood Urea Nitrogen 9mg/dl (7-20) Creatinine 0.92mg/dl (0.61-1.24) Glucose Level 132mg/dl (70-220) Calcium Level 9.2mg/dl (8.4-10.2) Total Bilirubin 0.3mg/dl (0.2-1.3) Direct Bilirubin 0.00mg/dl (0.00-0.20) Indirect Bilirubin 0.3mg/dl (0-1.1) Aspartate Amino Transf (AST/SGOT) 28IU/L (15-46) Alanine Aminotransferase (ALT/SGPT) 41IU/L (13-69) Alkaline Phosphatase 100IU/L (42-121) Total Protein 7.9g/dl (6.1-8.1) Albumin 3.5g/dl (3.3-4.9) Globulin 4.40g/dl (1.3-3.2) Albumin/Globulin Ratio 0.79 Test 11/06/16 12:15 Bedside Glucose 128mg/dL (70-220) GRETTA MARTIN Nov 06, 2016 14:06
--- NOTE | 2016-11-06 15:00 | CONS ---
Date/Time of Note Date/Time of Note DATE: 11/06/16 TIME: 14:58 Assessment/Plan Assessment/Plan Chief Complaint/Hosp Course SUBJECTIVE DATA: No acute changes overnight per report. The patient is alert, looks comfortable. Denies pain and discomfort. No fevers. MICROBIOLOGY: Wound culture on admission grew strep agalactiae and coag-negative Staph species. No anaerobe, blood cultures remain negative. ANTIMICROBIALS: Ciprofloxacin. PHYSICAL EXAMINATION: GENERAL: This is an obese, well-developed middle-aged man who is awake, in no distress. HEENT: Head atraumatic, normocephalic. Sclerae anicteric. Buccal mucosa pink. NECK: Supple. CHEST: Rise symmetrical. Breath sounds clear. HEART: S1, S2. ABDOMEN: Soft. Bowel sounds present. EXTREMITIES: Right thigh wound dressing intact. ASSESSMENT: 1. S/p sepsis. 2. Necrotizing soft-tissue infection of the right thigh gluteus and perineum, status post debridement on 10/28/2016, cultures growing coag-negative Staph species and strep agalactiae, both susceptible to ciprofloxacin. 3. Obesity. 4. Diabetes. PLAN: The patient remains stable. Surgery follows. Anticipate dc on oral Cipro , f/u surgical rec-s [facility] staff Problems: Consultation Date/Type/Reason Admit Date/Time Oct 29, 2016 at 00:28 Initial Consult Date 11/04/16 Type of Consultation: ID Exam/Review of Systems Vital Signs Vitals Vital Signs Date Time Temp Pulse Resp B/P Pulse Ox O2 Delivery O2 Flow Rate FiO2 11/06/16 07:45 97.7 79 18 129/78 92 11/05/16 20:00 Room Air Intake and Output 11/05/16 11/05/16 11/06/16 15:00 23:00 07:00 Intake Total 400 ml 1080 ml 1000 ml Output Total 0 ml Balance 400 ml 1080 ml 1000 ml Results Result Diagram: 11/06/16 0530 11/06/16 0530 Results 24 hrs Laboratory Tests Test 11/05/16 17:16 11/05/16 20:12 11/06/16 05:30 11/06/16 07:59 Bedside Glucose 114 131 132 White Blood Count 11.8 H Red Blood Count 5.01 Hemoglobin 14.0 Hematocrit 43.1 Mean Corpuscular Volume 86.0 Mean Corpuscular Hemoglobin 27.9 L Mean Corpuscular Hemoglobin Concent 32.5 Red Cell Distribution Width 14.0 Platelet Count 348 Mean Platelet Volume 10.5 H Neutrophils % 57.8 Lymphocytes % 24.0 Monocytes % 9.2 Eosinophils % 5.7 Basophils % 0.8 Nucleated Red Blood Cells % 0.0 Neutrophils # (Manual) 6.8 Lymphocytes # 2.8 Monocytes # 1.1 H Eosinophils # 0.7 H Basophils # 0.1 Nucleated Red Blood Cells # 0.0 Sodium Level 141 Potassium Level 4.5 Chloride Level 98 Carbon Dioxide Level 29 Anion Gap 19 H Blood Urea Nitrogen 9 Creatinine 0.92 Glucose Level 132 Calcium Level 9.2 Total Bilirubin 0.3 Direct Bilirubin 0.00 Indirect Bilirubin 0.3 Aspartate Amino Transf (AST/SGOT) 28 Alanine Aminotransferase (ALT/SGPT) 41 Alkaline Phosphatase 100 Total Protein 7.9 Albumin 3.5 Globulin 4.40 H Albumin/Globulin Ratio 0.79 Test 11/06/16 12:15 Bedside Glucose 128 Medications Medications Current Medications Hydromorphone HCl (Dilaudid) 1 mg Q4 PRN IV PAIN LEVEL 6-10 Last administered on 11/06/16 02:09; Admin Dose 1 MG; Start 10/28/16 at 22:30 Acetaminophen/ Hydrocodone Bitart ([place] (5/325)) 1 tab Q6H PRN PO PAIN LEVEL 6 -10 Last administered on 11/06/16 09:36; Admin Dose 1 TAB; Start 10/28/16 at 22: 30 Acetaminophen/ Hydrocodone Bitart ([place] (10/325)) 1 tab Q6H PRN PO PAIN; Start 10/28/16 at 22:30 Acetaminophen (Tylenol Tab) 650 mg Q6H PRN PO PAIN AND OR ELEVATED TEMP; Start 10/28/16 at 22:30 Ondansetron HCl (Zofran Inj) 4 mg Q6H PRN IV NAUSEA AND/OR VOMITING; Start 10/28 at 22:30 Miscellaneous Information 1 ea NOTE XX ; Start 10/28/16 at 23:30 Glucose (Glutose) 15 gm Q15M PRN PO DECREASED GLUCOSE; Start 10/28/16 at 23:30 Glucose (Glutose) 22.5 gm Q15M PRN PO DECREASED GLUCOSE; Start 10/28/16 at 23:30 Dextrose (D50w Syringe) 25 ml Q15M PRN IV DECREASED GLUCOSE; Start 10/28/16 at 23:30 Dextrose (D50w Syringe) 50 ml Q15M PRN IV DECREASED GLUCOSE; Start 10/28/16 at 23:30 Glucagon (Glucagen) 1 mg Q15M PRN IM DECREASED GLUCOSE; Start 10/28/16 at 23:30 Glucose (Glutose) 15 gm Q15M PRN BUCCAL DECREASED GLUCOSE; Start 10/28/16 at 23: 30 Insulin Glargine (Lantus) 27 unit DAILY@08 SC Last administered on 11/06/16 08 :08; Admin Dose 27 UNIT; Start 10/30/16 at 08:00 Diagnostic Test (Pha) (Accu-Chek) 1 ea 02 XX ; Start 10/30/16 at 02:00 Sodium Hypochlorite (Dakin'S (Dilute 1/40%)) 1 applic BID IRR Last administered on 11/06/16 09:37; Admin Dose 1 APPLIC; Start 10/30/16 at 13:30 Famotidine (Pepcid) 20 mg BID PO Last administered on 11/06/16 09:33; Admin Dose 20 MG; Start 11/01/16 at 21:00 Docusate Sodium (Colace) 100 mg DAILY PRN PO CONSTIPATION Last administered on 11/02/16 18:09; Admin Dose 100 MG; Start 11/01/16 at 11:00 Ciprofloxacin (Cipro) 750 mg BID@,18 PO Last administered on 11/06/16 11:37 ; Admin Dose 750 MG; Start 11/06/16 at 11:00 NORMA JOSE NP Nov 06, 2016 15:00
[2016-11-07] VITALS: BP 155/76
== END 2016-11-06 19:15 | disposition home health service (06) | DRG 853 ==
LOC: FTE 14:45 → SDS 20:14 → MS4 10-29 00:28 → MS2 11-02 01:10
PROVIDERS: ADMIT Family Medicine; ATTEND Family Medicine
PROC: 0JB90ZZ Excision of Buttock Subcutaneous Tissue and Fascia, Open Approach (ICD-10-PCS; 2016-10-28)
PROC: 0H9HXZZ Drainage of Right Upper Leg Skin, External Approach (ICD-10-PCS; 2016-10-28)
PROC: 0JBL0ZZ Excision of Right Upper Leg Subcutaneous Tissue and Fascia, Open Approach (ICD-10-PCS; principal; 2016-10-28 20:30)
DX: A41.9 Sepsis, unspecified organism (principal); M72.6 Necrotizing fasciitis; Z68.43 Body mass index [BMI] 50.0-59.9, adult; J98.2 Interstitial emphysema; E11.65 Type 2 diabetes mellitus with hyperglycemia; N49.3 Fournier gangrene; K57.30 Diverticulosis of large intestine without perforation or abscess without bleeding; K80.20 Calculus of gallbladder without cholecystitis without obstruction; F17.210 Nicotine dependence, cigarettes, uncomplicated; E66.01 Morbid (severe) obesity due to excess calories; B95.61 Methicillin susceptible Staphylococcus aureus infection as the cause of diseases classified elsewhere; Z79.4 Long term (current) use of insulin
CPT/HCPCS: 72193; 74177; 76705; 76870; 80048; 80053; 80202; 81001; 82962; 83036; 83605; 83735; 84560; 85025; 85610; 85730; 86850; 86900; 86901; 87040; 87070; 87075; 87086; 87102; 88304; 93005; 93971; 97116; 97162; C9113; J0692; J0744; J1100; J1170; J1815; J1885; J2250; J2270; J2405; J2543; J2765; J3010; J3370; J7030; J7040; J7050; J7999; P9045; Q9967

== ENCOUNTER → 2016-11-22 | Outpatient (CLI) | payer OTHER ==
[~2016-11-22] MED LIST changes: -BACTDS PO; -CEPH-443 PO; +CIPR750T3 PO; +EMPA10TA PO; +METF1000 PO; -NAPR-260 PO; +SITA100T8 PO
== END | disposition home or self-care (01) ==
LOC: DIB 10:44
PROVIDERS: ATTEND Emergency Medicine
DX: Z02.9 Encounter for administrative examinations, unspecified (principal)